=== PATIENT | female | born 1960 | race Caucasian/White ===

== ENCOUNTER → 2021-02-06 11:53 | Outpatient (CLI) | payer OTHER, SELFPAY | PROVIDERS: PCP Internal Medicine; Visit Provider Nurse Practitioner Family | DX: Z20.822 Contact with and (suspected) exposure to COVID-19 (principal) | CPT/HCPCS: U0003 ==

== ENCOUNTER 2023-04-26 14:58 | Emergency (ER) | payer OTHER, SELFPAY ==
[2023-04-26 15:10] VITALS: BP 129/87; PULSE 89; RESP 21; TEMP 36.8; O2SAT 100; BMI 25.2
--- NOTE | 2023-04-26 15:39 | EXP.UTC ---
Discharge Plan Disposition Patient Disposition: Home, Self-Care Condition: Good Prescriptions Prescriptions: New triamcinolone acetonide 0.1 % ointment 1 applic topical BID Qty: 454 0RF No Action fluticasone propionate 0.05 % cream 1 applic TOPICAL NEEDED PRN (Reason: cream) Referrals Follow up/Referrals: Provider,Referral, MD [Primary Care Provider] - See instructions Activity Restrictions/Add. Instructions Additional Instructions/Restrictions: follow up with pcp call for test results Clinical Impressions Clinical Impression: Acute eczema Instructions Patient Instructions: DI for Atopic Dermatitis-Adult, Eczema Discharge ED Provider: Casie ([facility])[place] [facility] [place] General Stated complaint: Rash on body, leg/ankle inflammation Mode of Arrival: Ambulatory Source of Information: Patient Limitations: No Limitations Time Seen by Provider: 04/26/23 15:39 Description of Symptoms (Recalled from Triage Doc. by RN): extreme eczema, hands are cracked, knees and ankles are swelling, itching unbearable (everywhere) HEENT Symptoms (Recalled from RN notes): No Resp Symptoms (Recalled from RN notes): No Skin Symptoms (Recalled from RN notes): Yes MS Symptoms (Recalled from RN notes): No Functional Status (Recalled from RN notes): n/a History of Present Illness Provider Complaint: 62 yr old female presents for rash to hands,arms,legs,feet,eyelid,chest and back, that itches. pt states she has had this rash has been coming and going for over 2 yrs and steroid cream helps but she runs out quick. Related Data Home Medications Medication Instructions Recorded Confirmed fluticasone propionate 0.05 % 1 applic topical NEEDED PRN 04/26/23 04/26/23 topical cream cream Previous Rx's Medication Instructions Recorded triamcinolone acetonide 0.1 % 1 applic topical BID #454 grams 04/26/23 topical ointment Allergies Allergy/AdvReac Type Severity Reaction Status Date / Time acetaminophen [From Percocet] Allergy Severe Rash Verified 04/26/23 15:20 oxycodone [From Percocet] Allergy Severe Rash Verified 04/26/23 15:20 Worker's Comp Is this a Worker's Comp case?: No [facility] Disclaimer: The information contained in this section may have been updated after the patient was seen, as this information can be updated by other users. Social History , [employer]) Smoking Status: Current every day smoker alcohol intake: never current occupational status: unemployed Travel in the last 8 weeks: None ROS Obtained: Yes All systems reviewed & no additional complaints except as documented Constitutional Constitutional: Reports system reviewed and no additional complaints, except as documented Eyes Eyes: Reports system reviewed and no additional complaints, except as documented ENT Ears, Nose, Mouth, and Throat: Reports system reviewed and no additional complaints, except as documented Cardiovascular Cardiovascular: Reports system reviewed and no additional complaints, except as documented Respiratory Respiratory: Reports system reviewed and no additional complaints, except as documented Musculoskeletal Musculoskeletal: Reports system reviewed and no additional complaints, except as documented Integumentary/Breasts Skin/Breast: Reports system reviewed and no additional complaints, except as documented, Reports as per HPI, Reports dry skin, Reports pruritus and Reports rash Neurologic Neurologic: Reports system reviewed and no additional complaints, except as documented Endocrine Endocrine: Reports system reviewed and no additional complaints, except as documented Allergic/Immunologic Allergic/Immunologic: Reports system reviewed and no additional complaints, except as documented Physical Exam General General appearance: alert and in no apparent distress Head Head exam: atraumatic Eye Eye exam: Present normal appearance and PERRL ENT ENT exam: Present
[2023-04-26 16:30] VITALS: BP 129/87; PULSE 89; RESP 21; TEMP 36.8; O2SAT 100
[2023-05-02 01:27] LABS: F001-IgE Egg White 0.98 kU/L (Class II); F002-IgE Milk 0.37 kU/L (Class I); F003-IgE Codfish 0.15 kU/L (Class 0/I); F004-IgE Wheat 0.35 kU/L (Class I); F010-IgE Sesame Seed 0.26 kU/L (Class 0/I); F013-IgE Peanut 0.24 kU/L (Class 0/I); F014-IgE Soybean 0.31 kU/L (Class 0/I); F024-IgE Shrimp 0.25 kU/L (Class 0/I); F027-IgE Beef 0.32 kU/L (Class I); F256-IgE Walnut 0.19 kU/L (Class 0/I); F338-IgE Scallop 0.28 kU/L (Class 0/I); Immunoglobulin E, Total 15364 IU/mL (6-495); O215-IgE Alpha-Gal 0.31 kU/L (Class 0/I)
== END 2023-04-26 16:30 | disposition home or self-care (01) ==
PROVIDERS: Emergency Provider Nurse Practitioner Family
DX: L30.9 Dermatitis, unspecified (principal); F17.210 Nicotine dependence, cigarettes, uncomplicated
CPT/HCPCS: 86003; 86008; 99204; 99212; G0463

== ENCOUNTER → 2023-09-16 14:22 | Outpatient (CLI) | payer OTHER, SELFPAY ==
[2023-09-16 15:38] LABS: Basophils # 0.1 K/mm3 (0-0.2); Basophils % 0.7 % (0.1-2.0); Eosinophils # 0.9 K/mm3 (0.0-0.4); Eosinophils % 10.6 % (0.1-12.0); Hematocrit 43.4 % (37.0-47.0); Hemoglobin 14.4 g/dL (12.2-16.2); Lymphocytes # 1.5 K/mm3 (0.7-4.5); Lymphocytes % 18.2 % (10-50); Mean Corpuscular HGB Conc 33.2 g/dL (31.8-35.4); Mean Corpuscular Hemoglobin 32.7 pg (27.0-31.2); Mean Corpuscular Volume 98.5 fl (81-99); Mean Platelet Volume 7.3 fl (7.4-10.4); Monocytes # 0.5 K/mm3 (0.1-1.0); Monocytes % 5.4 % (1.7-9.3); Neutrophils # 5.5 K/mm3 (1.8-7.8); Neutrophils % 65.2 % (37.0-80.0); Platelet Count 403 K/mm3 (142-424); Red Blood Count 4.41 M/mm3 (4.20-5.40); Red Cell Distribution Width 13.5 % (11.5-17.5); White Blood Count 8.4 K/mm3 (4.8-10.8)
[2023-09-16 16:02] LABS: Chloride 101 mmol/L (98-107); Potassium 3.9 mmoL/L (3.5-5.1); Sodium 138 mmol/L (136-145)
[2023-09-16 16:04] LABS: Alanine Aminotransferase 23 U/L (12-78); Aspartate Amino Transferase 31 U/L (14-36); Blood Urea Nitrogen 12 mg/dl (7-17); Estimated Glomerular Filt Rate 72 ml/min (>60); GFR (African American) 88 ML/MIN (>60)
[2023-09-16 16:05] LABS: Albumin Level 4.1 g/dl (3.5-5.0); Albumin/Globulin Ratio 1.3 (1.1-1.8); Alkaline Phosphatase 160 U/L (38-126); Anion Gap 8.9 mEq/L (5-15); Bilirubin,Total 0.3 mg/dl (0.2-1.3); Calcium 9.1 mg/dl (8.4-10.2); Carbon Dioxide 32 mmol/L (22.0-30.0); Globulin 3.2 g/dL (1.3-3.2); Glucose 101 mg/dl (74-100); Total Protein,Serum 7.3 g/dl (6.3-8.2)
[2023-09-18 14:33] LABS: Peripheral Smear Review Scanned Result
== END ==
PROVIDERS: Visit Provider Internal Medicine Medical Oncology
DX: D72.10 Eosinophilia, unspecified (principal)
CPT/HCPCS: 36415; 80053; 85025

== ENCOUNTER 2024-05-25 18:29 | Observation (INO) | payer BC, SELFPAY ==
[2024-05-25] VITALS (10 sets, daily range): BP systolic 128–161; BP diastolic 75–100; PULSE 106–124; RESP 18–24; TEMP 36.9; O2SAT 91–98; BMI 25.9; BMI 25.7
--- NOTE | 2024-05-25 19:14 | CT_ITS ---
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 Exam focused on the arteries. 3D rendering (Not supervised by radiologist): MIP and/or 3D reconstructed images were created by the technologist. Radiation optimization: All CT scans at this facility use at least one of these dose optimization techniques: automated exposure control; mA and/or kV adjustment per patient size (includes targeted exams where dose is matched to clinical indication); or iterative reconstruction. Contrast material: ISOVUE 370; Contrast volume: 70 ml; Contrast route: INTRAVENOUS (IV); COMPARISON: No relevant prior studies available. FINDINGS: Pulmonary arteries: Filling defects involving the right lateral basilar segmental pulmonary artery, and left posterior basilar segmental pulmonary artery compatible with pulmonary emboli. Aorta: Unremarkable. No aortic aneurysm. No aortic dissection. Lungs: Prominent interstitial markings of the lung bases with centrilobular airspace opacities suggest mild pulmonary edema versus mild interstitial lung disease. Pleural spaces: Unremarkable. No pneumothorax. No pleural effusion. Heart: Unremarkable. No cardiomegaly. No pericardial effusion. Coronary arteries: Mild three-vessel calcific atherosclerotic disease of the coronary arteries is present. Lymph nodes: Calcified nodes in the left upper hilum likely related to prior granulomatous process. Bones/joints: Unremarkable. No acute fracture. Soft tissues: Unremarkable. IMPRESSION: 1. Prominent interstitial markings of the lung bases with centrilobular airspace opacities suggest mild pulmonary edema versus mild interstitial lung disease. 2. Filling defects involving the right lateral basilar segmental pulmonary artery, and left posterior basilar segmental pulmonary artery compatible with pulmonary emboli. RV/LV = 0.93. No evidence of right heart strain.
--- NOTE | 2024-05-25 19:15 | ED_ITS ---
Discharge Plan Disposition Patient Disposition: Admitted Clinical Impressions Clinical Impression: Eosinophilia, Erythroderma, Pulmonary embolism, Tachycardia Discharge ED Provider: Vitaliy Marquez Adult HPI General Chief complaint: Skin/Abscess/Foreign Body Stated complaint: rash, Time Seen by Provider: 05/25/24 18:32 Mode of Arrival: Ambulatory Source of Information: Patient Limitations: No Limitations Description of Symptoms (Recalled from ER Triage Doc. by RN): pt has had a red burning rasha ll over body for the last 3-4 weeks after taking a new antibiotic prescribed for bronchitis, ER MD at bedside upon triage History of Present Illness HPI narrative: 63-year-old female presents to the ER for concerns of diffuse rash. Patient states 4 weeks ago she was diagnosed with bronchitis and started on an antibiotic that starts with an L, believed to be levofloxacin. She took this as prescribed, 2 days after finishing it, she had a small red patch on her left forearm. Within 24 hours she had diffuse redness all over her entire body like sunburn. She states the top layer of her skin got very dry and flakes off like a sunburn. Since that time, her symptoms have been persistent. She took a 5- day steroid pack that she finished 5 days ago. She states this slightly improved her symptoms, relieving some of the itching and burning and improving the redness, however it did not go away. Patient states her whole body feels like a bad sunburn itching and burning. She states her skin is dry and flaky especially in areas of friction. Patient does additionally report that she had a weird rash approximately 8 months ago when she had a clot on her aorta . She states she took a blood thinner and the clot was reportedly completely dissolved so she was taken off the blood thinner. She states the rash at that time appeared more like hives and was not as burning and itching as this rash, however her skin was dry. Patient denies any painful eyes, mouth, or throat. She states the rash has not been on the palms or soles. Patient does report slight swelling in her lower extremities without shortness of breath or chest pain. She states she chronically feels cold because her skin is so hot to the touch, but she has not had fever or other associated symptoms. Related Data Home Medications Medication Instructions Recorded Confirmed fluticasone propionate 0.05 % 1 applic topical NEEDED PRN 04/26/23 09/16/23 topical cream cream amlodipine 5 mg tablet mg PO 09/16/23 09/16/23 apixaban 5 mg tablet (Eliquis) mg PO DAILY 09/16/23 09/16/23 aspirin 81 mg chewable tablet PO 09/16/23 09/16/23 budesonide-formoterol HFA 160 inhalation 09/16/23 09/16/23 mcg-4.5 mcg/actuation aerosol inhaler (Symbicort) famotidine 20 mg tablet mg PO BID 09/16/23 09/16/23 hydrochlorothiazide 12.5 mg capsule mg PO 09/16/23 09/16/23 hydroxyzine HCl 25 mg tablet mg PO 09/16/23 09/16/23 ipratropium 0.5 mg-albuterol 3 mg ml inhalation 09/16/23 09/16/23 (2.5 mg base)/3 mL nebulization soln levocetirizine 5 mg tablet mg PO DAILY 09/16/23 09/16/23 montelukast 10 mg tablet mg PO DAILY 09/16/23 09/16/23 Previous Rx's Medication Instructions Recorded hydroxyzine pamoate 25 mg capsule 25 mg PO HS 7 days #7 caps 04/26/23 (Vistaril) triamcinolone acetonide 0.1 % 1 applic topical BID #454 grams 04/26/23 topical ointment Allergies Allergy/AdvReac Type Severity Reaction Status Date / Time acetaminophen [From Percocet] Allergy Severe Rash Verified 09/16/23 13:37 oxycodone [From Percocet] Allergy Severe Rash Verified 09/16/23 13:37 [facility] Disclaimer: The information contained in this section may have been updated after the patient was seen, as this information can be updated by other users. Medical History (Updated 05/25/24 @ 22:14 by Vitaliy Marquez MD) Asthma Surgical History (Updated 09/16/23 @ 13:48 by Tara Gray MA) H/O: hysterectomy Family History (Updated 09/16/23 @ 13:49 by Tara Gray MA) Other Asthma Eczema Hyperlipidemia Hypertension Social History Smoking Status: Current every day smoker alcohol intake: never current occupational status: unemployed Travel in the last 8 weeks: None ROS Obtained: Yes All systems reviewed & no additional complaints except as documented Constitutional Constitutional: Reports chills, Denies fever(s), Denies headache(s) and Denies weakness Eyes Eyes: Denies change in vision, Denies dry eyes and Denies eye pain ENT Ears, Nose, Mouth, and Throat: Denies dizziness, Denies headache(s), Denies nasal congestion, Denies odynophagia and Denies sore throat Cardiovascular Cardiovascular: Denies chest pain, Denies dyspnea and Denies leg edema Respiratory Respiratory: Denies cough and Denies dyspnea Gastrointestinal Gastrointestingal: Denies constipation, diarrhea, nausea, odynophagia or vomiting Genitourinary Female Genitourinary: Denies dysuria Musculoskeletal Musculoskeletal: Denies arthralgias, Denies myalgias, Denies numbness and Denies tingling Integumentary/Breasts Skin/Breast: Reports change in pigmentation, Reports dry skin, Reports redness, Reports pruritus and Reports rash Neurologic Neurologic: Denies dizziness, Denies headache(s), Denies numbness, Denies tingling and Denies weakness Physical Exam General General appearance: alert and in no apparent distress Head Head exam: atraumatic and normocephalic Eye Eye exam: Present normal appearance, PERRL and EOMI; Absent conjunctival redness ENT ENT exam: Present normal oropharynx, mucous membranes moist and other (No erythema of the oropharynx, no skin sloughing or blistering of the mucosal membranes) Neck Neck exam: Present normal inspection and full ROM Chest Chest inspection: Present symmetric chest wall rise; Absent tenderness Respiratory Respiratory exam: Present normal lung sounds bilaterally; Absent respiratory distress, wheezes or stridor Cardiovascular Cardiovascular exam: Present normal rhythm and tachycardia Abdominal Exam Abdominal exam: Present soft; Absent distention, tenderness, guarding or rebound Extremities Exam Extremities exam: Present full ROM and edema (0 to +1 bilateral distal pitting edema) Neurological Exam Neurological exam: Present alert and oriented X3; Absent motor sensory deficit Psychiatric Psychiatric exam: Present normal affect and normal mood Skin Skin exam: Present warm, dry, rash (Diffuse, erythematous, confluent rash without vesicles, no sloughing or blisters, skin is extremely dry, flaky, but not peeling, spares palms and soles, spares mucous membranes and eyes) and erythema Medical Decision Making Medical Records Medical records reviewed: Yes I reviewed the patient's medical records. MR Comment: Reviewed urgent care note from 04/26 which demonstrates patient was evaluated for diffuse rash that she reported at that time had been coming and going for 2 years where steroid cream had previously helped. Patient was prescribed triamcinolone. Prabhakar Inquiry Pt receiving controlled substance: No Vital Signs: 05/25/24 18:30 05/25/24 19:00 05/25/24 20:05 Temperature 98.4 F Temperature Source Oral Pulse Rate 124 H 114 H Pulse Rate [Right Radial] 114 H Respiratory Rate 24 Blood Pressure 146/100 H 153/92 H Blood Pressure [Right Arm] 147/100 H Blood Pressure Mean [Right Arm] 115 02 Sat by Pulse Oximetry 97 98 98 Oxygen Delivery Method Room Air 05/25/24 20:30 05/25/24 21:00 Temperature Temperature Source Pulse Rate 119 H 119 H Pulse Rate [Right Radial] Respiratory Rate Blood Pressure 141/84 H 161/96 H Blood Pressure [Right Arm] Blood Pressure Mean [Right Arm] 02 Sat by Pulse Oximetry 97 96 Oxygen Delivery Method Lab Data Lab Results 05/25/24 19:15: WBC 13.8 H, RBC 4.37, Hgb 14.3, Hct 43.5, MCV 99.7 H, MCH 32.9 H , MCHC 33.0, RDW 14.6, Plt Count 534 H, MPV 7.1 L, Neut % (Auto) 68.2, Lymph % (Auto) 13.1, Mcdowell % (Auto) 5.5, Eos % (Auto) 12.6 H, Baso % (Auto) 0.6, Neut # (Auto) 9.4 H, Lymph # (Auto) 1.8, Mcdowell # (Auto) 0.8, Eos # (Auto) 1.7 H, Baso # (Auto) 0.1, Sodium 138, Potassium 3.3 L, Chloride 104, Carbon Dioxide 29, Anion Gap 8.3, BUN 16, Creatinine 1.00, Estimated Creat Clear 61, Estimated GFR 56 L, Est GFR ( Amer) 68, Glucose 116 H, Calcium 8.9, Total Bilirubin 0.9, AST 30, ALT 35, Alkaline Phosphatase 105, Troponin I < 0.01, NT-Pro-B Natriuret Pep 76.1, Total Protein 7.2, Albumin 3.8, Globulin 3.4 H, Albumin/Globulin Ratio 1.1 05/25/24 19:15 05/25/24 19:15 Orders (Tests/Meds): ED MEDICATIONS Generic Name Dose Route Start Last Admin Trade Name Rob PRN Reason Stop Dose Admin Sodium Chloride 10 ml 05/25/24 19:56 05/25/24 19:57 Sodium Chloride 0.9% 10ml Syr (Rad Only) IV 06/24/24 19:55 10 ml NEEDED PRN Administration Maintain IV Site Discontinued Medications Generic Name Dose Route Start Last Admin Trade Name Rob PRN Reason Stop Dose Admin Apixaban 10 mg 05/25/24 20:59 05/25/24 21:38 Apixaban 5mg Tablet PO 05/25/24 21:00 10 mg ONCE ONE Administration Diphenhydramine HCl 25 mg 05/25/24 19:21 05/25/24 19:28 Diphenhydramine 25mg Capsule PO 05/25/24 19:22 25 mg ONCE ONE Administration Diphenhydramine HCl 25 mg 05/25/24 21:04 05/25/24 21:13 Diphenhydramine 50mg/Ml Vial IV 05/25/24 21:05 25 mg ONCE ONE Administration Lactated Ringer's 1,000 mls @ 999 mls/hr 05/25/24 19:05 05/25/24 19:17 Lactated Ringer's 1000 Ml Bag IV 05/25/24 20:05 999 mls/hr .Q1H1M ONE Administration Iopamidol 70 ml 05/25/24 19:55 05/25/24 19:56 Iopamidol-370 (76%);100ml Bottle IV 05/25/24 19:56 70 ml ONCE ONE Administration Methylprednisolone Sodium Succinate 80 mg 05/25/24 20:59 05/25/24 21:09 Methylprednisolone Sod Succ 125mg Vial IV 05/25/24 21:00 Not Given ONCE ONE Methylprednisolone Sodium Succinate 80 mg 05/25/24 21:09 05/25/24 21:10 Methylprednisolone Sod Succ 40mg Vial IV 05/25/24 21:10 80 mg ONCE ONE Administration Sodium Chloride 40 ml 05/25/24 19:55 05/25/24 19:56 0.9 % Sodium Chloride 50 Ml Vial IV 05/25/24 19:56 40 ml ONCE ONE Administration ORDERS Category Date Time Status CT angio chest - dissection Stat Cat Scan 05/25/24 19:14 Completed BNP [NT Pro Brain Natriuretic Pep.] Stat Lab 05/25/24 19:15 Completed CBC w/Auto Diff [Complete Blood Count Auto Diff] Stat Lab 05/25/24 19:15 Completed CMP [Comprehensive Metabolic Panel] Stat Lab 05/25/24 19:15 Completed Trop I [Troponin I] Stat Lab 05/25/24 19:15 Completed Troponin I Q3H Lab 05/25/24 23:50 Ordered Troponin I Q3H Lab 05/26/24 02:50 Ordered Medical Decision Narrative: In summary, this 63-year-old female presents to the emergency department today with diffuse erythematous, itchy, burning rash with dry, flaky skin. On initial evaluation patient is hemodynamically stable though mildly tachycardic, she is shivering with chills but is afebrile, has diffuse rash as described in physical exam. Differential diagnosis includes but is not limited to drug reaction, erythroderma, I considered staph scalded skin, SJS, TEN, patient has no sloughing, blistering, or peeling, her skin is dry and flaky, sparing of the mucous membranes as well as palms and soles. I considered atopic or contact dermatitis however patient has no recent changes in detergents, soaps, or other agents that touch her skin. She denies any new supplements or medications. Due to mild swelling in the bilateral lower extremities, I did consider possibility of third spacing fluid from various etiologies so BNP was ordered. With her history of prior aortic clot associated with other rash, also considered possibility of existing clot. Based on these concerns, I ordered serum labs, IV fluids, antihistamine, CT imaging. Patient received IV fluids, Benadryl for treatment initially. Labs personally reviewed demonstrate mild leukocytosis with eosinophilia predominance, patient has had eosinophilia before, however is nearly double what it was back in September 2023 based on my review of previous records. CMP not specifically actionable at this time, initial troponin undetectably low reassuring against heart strain. CTA PE personally interpreted demonstrates abnormalities concerning for PE in the bilateral lungs, radiology specifically called me about this and stated there are filling defects concerning for segmental PE bilaterally, no heart strain. Patient stated on reassessment that she had improvement of her symptoms of itching and burning initially after the Benadryl, but it is returning. Additional Benadryl was administered as well as Solu-Medrol. I believe the most likely diagnosis at this time is erythroderma secondary to levofloxacin. Reviewed previous records demonstrates she has actually had this rash for more than a month which is reassuring against DRESS syndrome, however patient continues to be tachycardic which could be an indicator of systemic symptoms, this could also be related to patient having PE though she does not show signs of heart strain on imaging or labs. It is also possible that patient has tachycardia secondary to anxiety which she endorses as well as shivering secondary to her diffuse erythematous rash Which she states is making her feel cold. Given these findings, I believe it is most appropriate for patient to be admitted to the hospital for monitoring, cardiology evaluation, and continued steroid treatment. I discussed this case with the hospitalist including my goal for patient to start on oral prednisone and have at least 3-week steroid taper at the time of discharge as well as goals to have the patient see cardiology to rule out possible endorgan involvement with her diffuse drug reaction. Patient was accepted to hospitalist for admission. Critical Care Critical Care Time Critical Care Time: No
[2024-05-25] MEDS: LACTATED RINGERS 1000ML 1,000 ML 999 ML IV (19:17)
[2024-05-25 19:24] LABS: Basophils # 0.1 K/mm3 (0-0.2); Basophils % 0.6 % (0.1-2.0); Eosinophils # 1.7 K/mm3 (0.0-0.4); Eosinophils % 12.6 % (0.1-12.0); Hematocrit 43.5 % (37.0-47.0); Hemoglobin 14.3 g/dL (12.2-16.2); Lymphocytes # 1.8 K/mm3 (0.7-4.5); Lymphocytes % 13.1 % (10-50); Mean Corpuscular Hemoglobin 32.9 pg (27.0-31.2); Mean Corpuscular Volume 99.7 fl (81-99); Mean Platelet Volume 7.1 fl (7.4-10.4); Monocytes # 0.8 K/mm3 (0.1-1.0); Monocytes % 5.5 % (1.7-9.3); Neutrophils # 9.4 K/mm3 (1.8-7.8); Neutrophils % 68.2 % (37.0-80.0); Platelet Count 534 K/mm3 (142-424); Red Blood Count 4.37 M/mm3 (4.20-5.40); Red Cell Distribution Width 14.6 % (11.5-17.5); White Blood Count 13.8 K/mm3 (4.8-10.8)
[2024-05-25] MEDS: diphenhydrAMINE 25MG CAPSULE 25 MG PO (19:28)
[2024-05-25 19:32] LABS: Chloride 104 mmol/L (98-107); Potassium 3.3 mmoL/L (3.5-5.1); Sodium 138 mmol/L (136-145)
[2024-05-25 19:34] LABS: Blood Urea Nitrogen 16 mg/dl (7-17); Creatinine Clearance Estimated 61 mL/min (50-200); Estimated Glomerular Filt Rate 56 ml/min (>60); GFR (African American) 68 ML/MIN (>60)
[2024-05-25 19:35] LABS: Alanine Aminotransferase 35 U/L (12-78); Albumin Level 3.8 g/dl (3.5-5.0); Albumin/Globulin Ratio 1.1 (1.1-1.8); Alkaline Phosphatase 105 U/L (38-126); Anion Gap 8.3 mEq/L (5-15); Aspartate Amino Transferase 30 U/L (14-36); Bilirubin,Total 0.9 mg/dl (0.2-1.3); Calcium 8.9 mg/dl (8.4-10.2); Carbon Dioxide 29 mmol/L (22.0-30.0); Globulin 3.4 g/dL (1.3-3.2); Glucose 116 mg/dl (74-100); Total Protein,Serum 7.2 g/dl (6.3-8.2)
--- NOTE | 2024-05-25 19:41 | PC.NURSE ---
pt to CT
[2024-05-25 19:44] LABS: NT Pro Brain Natriuretic Pep. 76.1 pg/mL (0-125)
[2024-05-25] MEDS: 0.9 % SODIUM CHLORIDE 50 ML VIAL 40 ML IV (19:56)
[2024-05-25] MEDS: IOPAMIDOL-370 (76%);100ML BOTTLE 70 ML IV (19:56)
[2024-05-25] MEDS: SODIUM CHLORIDE 0.9% 10ML SYR (RAD ONLY) 10 ML IV (19:57)
--- NOTE | 2024-05-25 20:51 | PC.NURSE ---
Spoke with Layla in lab to add on trop
[2024-05-25] MEDS: METHYLPREDNISOLONE SOD SUCC 40MG VIAL 80 MG IV (21:10)
[2024-05-25] MEDS: diphenhydrAMINE 50MG/ML VIAL 25 MG IV (21:13)
[2024-05-25 21:15] LABS: Troponin I < 0.01 ng/ml (0.00-0.034)
[2024-05-25] MEDS: APIXABAN 5MG TABLET 10 MG PO (21:38)
--- NOTE | 2024-05-25 22:14 | PC.NURSE ---
Spoke with transfer and pumphouse operator chief about admission.
--- NOTE | 2024-05-25 22:22 | PC.NURSE ---
Called report to Erich ARBOLEDA on 2nd floor
--- NOTE | 2024-05-25 22:22 | PC.NURSE ---
[id number] RECEIVED PHONE REPORT FROM SARA RN/ED NURSE. PATIENT IS A 63 YO FEMALE. DIAGNOSIS ERYTHRODERMA/PE/TACHYCARDIA.MAY TRANSPORT BY W/C.
--- NOTE | 2024-05-25 22:30 | P.HP_ITS ---
History of Present Illness *Admission Date: 05/25/24 *Reason for visit:: generalized rash *History of present illness: 63-year-old female presents to the ER for concerns of diffuse rash. Patient states 4 weeks ago she was diagnosed with bronchitis and started on an antibiotic that starts with an L, believed to be levofloxacin. She took this as prescribed, 2 days after finishing it, she had a small red patch on her left forearm. Within 24 hours she had diffuse redness all over her entire body like sunburn. She states the top layer of her skin got very dry and flakes off like a sunburn. Since that time, her symptoms have been persistent. She took a 5- day steroid pack that she finished 5 days ago. She states this slightly improved her symptoms, relieving some of the itching and burning and improving the redness, however it did not go away. Patient states her whole body feels like a bad sunburn itching and burning. She states her skin is dry and flaky especially in areas of friction. Patient does additionally report that she had a weird rash approximately 8 months ago when she had a clot on her aorta . She states she took a blood thinner and the clot was reportedly completely dissolved so she was taken off the blood thinner. She states the rash at that time chey eared more like hives and was not as burning and itching as this rash, however her skin was dry. Patient denies any painful eyes, mouth, or throat. She states the rash has not been on the palms or soles. Patient does report slight swelling in her lower extremities without shortness of breath or chest pain. She states she chronically feels cold because her skin is so hot to the touch, but she has not had fever or other associated symptoms. [facility] Disclaimer: The information contained in this section may have been updated after the patient was seen, as this information can be updated by other users. Medical History (Updated 05/26/24 @ 19:37 by James Agudelo APRN) Asthma Surgical History H/O: hysterectomy Family History Other Asthma Eczema Hyperlipidemia Hypertension Social History (Updated 05/25/24 @ 22:57 by Beverley Vu RN) Smoking Status: Current every day smoker alcohol intake: never current occupational status: unemployed Travel in the last 8 weeks: None Review of Systems Constitutional Constitutional: Denies headache(s) and Denies weakness ENT Ears, Nose, Mouth, and Throat: Denies dizziness and Denies headache(s) *Musculoskeletal Musculoskeletal: Denies numbness and Denies tingling *Neurologic Neurologic: Denies dizziness, Denies headache(s), Denies numbness, Denies tingling and Denies weakness Meds Home Medications and Allergies Home Medications ?Medication ?Instructions ?Recorded ?Confirmed ?Type amlodipine 5 mg tablet 5 mg PO DAILY 09/16/23 05/25/24 History famotidine 20 mg tablet 20 mg PO BID 09/16/23 05/25/24 History hydrochlorothiazide 12.5 mg capsule 12.5 mg PO DAILY 09/16/23 05/25/24 History montelukast 10 mg tablet 10 mg PO HS 09/16/23 05/26/24 History apixaban 5 mg tablet (Eliquis) See Rx Instructions .Route 05/26/24 Rx .COMPLEX 30 days #72 tabs budesonide-formoterol HFA 160 2 puff inhalation BID 05/26/24 05/26/24 History mcg-4.5 mcg/actuation aerosol inhaler (Breyna) hydroxyzine HCl 25 mg tablet 25 mg PO HS 05/26/24 05/26/24 History loratadine 10 mg tablet 10 mg PO DAILY 05/26/24 05/26/24 History prednisone 10 mg tablet See Rx Instructions .Route 05/26/24 Rx .COMPLEX 21 days #65 tabs New Prescriptions to Start Prescriptions: apixaban [Eliquis] Luis Horn prednisone Luis Horn Allergies Allergy/AdvReac Type Severity Reaction Status Date / Time acetaminophen [From Percocet] Allergy Severe Rash Verified 09/16/23 13:37 oxycodone [From Percocet] Allergy Severe Rash Verified 09/16/23 13:37 Exam Data for Last 24 hours Vital signs and Labs for Last 24 Hours: Temp Pulse Resp BP Pulse Ox O2 Del Method 98.5 F 109 H 18 143/85 H 97 Room Air 05/25/24 22:23 05/25/24 22:23 05/25/24 22:23 05/25/24 22:23 05/25/24 22:00 05/25/24 22:23 Laboratory Results - last 24 hr 05/25/24 19:15: WBC 13.8 H, RBC 4.37, Hgb 14.3, Hct 43.5, MCV 99.7 H, MCH 32.9 H , MCHC 33.0, RDW 14.6, Plt Count 534 H, MPV 7.1 L, Neut % (Auto) 68.2, Lymph % (Auto) 13.1, [place] % (Auto) 5.5, Eos % (Auto) 12.6 H, Baso % (Auto) 0.6, Neut # (Auto) 9.4 H, Lymph # (Auto) 1.8, [place] # (Auto) 0.8, Eos # (Auto) 1.7 H, Baso # (Auto) 0.1, Sodium 138, Potassium 3.3 L, Chloride 104, Carbon Dioxide 29, Anion Gap 8.3, BUN 16, Creatinine 1.00, Estimated Creat Clear 61, Estimated GFR 56 L, Est GFR ( Amer) 68, Glucose 116 H, Calcium 8.9, Total Bilirubin 0.9, AST 30, ALT 35, Alkaline Phosphatase 105, Troponin I < 0.01, NT-Pro-B Natriuret Pep 76.1, Total Protein 7.2, Albumin 3.8, Globulin 3.4 H, Albumin/Globulin Ratio 1.1 I & O for Last 24 hours: Intake & Output 05/22/24 05/23/24 05/24/24 05/25/24 23:59 23:59 23:59 23:59 Weight 68.492 kg Constitutional Constitutional: moderate distress and cooperative *Routine HEENT Exam Head: Present normocephalic and atraumatic Eye: Present EOMI and PERRL ENT: Present mucous membranes moist *Routine Neck Exam Neck: Present supple; Absent lymphadenopathy *Routine Respiratory Exam Respiratory: Present CTA bilaterally *Routine Cardiovascular Exam Cardiovascular: Present RRR *Routine Abdominal Exam Abdominal: Present soft and normoactive bowel sounds; Absent tenderness *Routine Rectal Exam Rectal:: deferred *Routine Genitalia Exam Genitalia:: deferred *Routine Extremities Exam Extremities: Absent cyanosis, clubbing or edema *Routine Skin Exam Skin: Present erythema, dry, warm and rash *Routine Neurological Exam Neurological: Present alert, oriented X3, normal reflexes and moving all extremities Routine Psychiatric Exam Psychiatric: Present anxious Assessment and Plan *Assessment and plan (1) Pulmonary embolism: Status: Acute Qualifiers: Pulmonary embolism type: single subsegmental (without acute cor pulmonale) Qualified Code(s): I26.93 - Single subsegmental pulmonary embolism without acute cor pulmonale Category: Medical Code(s): I26.99 - Other pulmonary embolism without acute cor pulmonale (2) Tachycardia: Status: Acute Category: Medical Code(s): R00.0 - Tachycardia, unspecified (3) Eosinophilia: Status: Acute Qualifiers: Eosinophilia type: unspecified eosinophilia Qualified Code(s): D72.10 - Eosinophilia, unspecified Category: Medical Code(s): D72.10 - Eosinophilia, unspecified (4) Xerosis due to atopic dermatitis: Status: Acute Category: Medical Code(s): L20.9 - Atopic dermatitis, unspecified (5) HTN (hypertension): Status: Acute Qualifiers: Hypertension type: unspecified Qualified Code(s): I10 - Essential (primary) hypertension Category: Medical Code(s): I10 - Essential (primary) hypertension (6) Asthma: Status: Acute Qualifiers: Asthma severity: unspecified severity Asthma persistence: unspecified Asthma complication type: unspecified Qualified Code(s): J45.909 - Unspecified asthma, uncomplicated Category: Medical Code(s): J45.909 - Unspecified asthma, uncomplicated (7) Current smoker: Status: Acute Category: Social Hx Code(s): F17.200 - Nicotine dependence, unspecified, uncomplicated Plan 63-year-old female presents to the ER for concerns of diffuse rash. She states her skin is dry and flaky especially in areas of friction. Patient does additionally report that she had a weird rash approximately 8 months ago when she had a clot on her aorta . She states she took a blood thinner and the clot was reportedly completely dissolved so she was taken off the blood thinner. reason that deemed to perform CTA of chest whrn the left segmental pulmonary embolism was a main concern. Patient remains tachycardic on ER with severe eosinophylia. ED requested admission for further monitoring and management. Agreed for it. Plan: -Stable left acute pulmonary embolism: tachycardia. no right heart strain Admit patient for med surg. monitoring. currently on RA. start continuos cardiac engine monitor for chest pain and decompensation symptoms start eliquis 10mg BID. repeat labs in the morning -eosinophilia and xerosis due to AD: loaded with 160mg solumedrol at ED continue IV steroid. goal transition to PO. patient may follow up as outpatient with engineering aide for definitive diagnosis and treatment. hold aspirin in the setting of hypersensitivity state. HTN and Asthma: conditions reviewed resume home regimen smoker: on nicotine patch. education on smoking cessation strategies was provided On protonix for GI ppx Full code regular cardiac diet
--- NOTE | 2024-05-25 22:43 | PC.NURSE ---
Patient arrived to floor via wheelchair from ED at 22:42.
--- NOTE | 2024-05-25 22:43 | PC.NURSE ---
[id number] PATIENT ARRIVED TO THE FLOOR VIA W/C. ADMITTED TO ROOM 209.
[2024-05-25] MEDS: 0.9 % SODIUM CHLORIDE 1000ML 1,000 ML 50 ML IV (23:47)
[2024-05-26] VITALS: BP 122/72; PULSE 109; PULSE 111; RESP 18; TEMP 36.9; O2SAT 99
[2024-05-26 00:23] LABS: Troponin I < 0.01 ng/ml (0.00-0.034)
[2024-05-26] MEDS: POTASSIUM CHLORIDE 20MEQ TAB 40 MEQ PO (00:34)
[2024-05-26 03:34] LABS: Troponin I < 0.01 ng/ml (0.00-0.034)
[2024-05-26 04:00] VITALS: BP 110/54; PULSE 100; PULSE 102; RESP 16; TEMP 36.6; O2SAT 97
[2024-05-26 08:00] VITALS: BP 105/60; PULSE 92; PULSE 95; RESP 19; TEMP 36.8; O2SAT 97
[2024-05-26 08:12] LABS: Alanine Aminotransferase 30 U/L (12-78); Albumin Level 3.1 g/dl (3.5-5.0); Albumin/Globulin Ratio 1.1 (1.1-1.8); Alkaline Phosphatase 84 U/L (38-126); Anion Gap 6.4 mEq/L (5-15); Aspartate Amino Transferase 25 U/L (14-36); Bilirubin,Total 0.7 mg/dl (0.2-1.3); Blood Urea Nitrogen 16 mg/dl (7-17); Calcium 8.5 mg/dl (8.4-10.2); Carbon Dioxide 28 mmol/L (22.0-30.0); Chloride 108 mmol/L (98-107); Creatinine Clearance Estimated 61 mL/min (50-200); Estimated Glomerular Filt Rate 72 ml/min (>60); GFR (African American) 87 ML/MIN (>60); Globulin 2.8 g/dL (1.3-3.2); Glucose 180 mg/dl (74-100); Potassium 3.4 mmoL/L (3.5-5.1); Sodium 139 mmol/L (136-145); Total Protein,Serum 5.9 g/dl (6.3-8.2)
[2024-05-26 08:24] LABS: Basophils % 0.2 % (0.1-2.0); Eosinophils % 0.1 % (0.1-12.0); Hematocrit 39.2 % (37.0-47.0); Lymphocytes # 0.7 K/mm3 (0.7-4.5); Lymphocytes % 11.3 % (10-50); Mean Corpuscular HGB Conc 30.7 g/dL (31.8-35.4); Mean Corpuscular Volume 104.3 fl (81-99); Mean Platelet Volume 7.2 fl (7.4-10.4); Monocytes # 0.1 K/mm3 (0.1-1.0); Monocytes % 2.1 % (1.7-9.3); Neutrophils # 5.4 K/mm3 (1.8-7.8); Neutrophils % 86.2 % (37.0-80.0); Platelet Count 434 K/mm3 (142-424); Red Blood Count 3.76 M/mm3 (4.20-5.40); Red Cell Distribution Width 14.4 % (11.5-17.5); White Blood Count 6.3 K/mm3 (4.8-10.8)
--- NOTE | 2024-05-26 08:24 | HMH.PHAINT1 ---
Pharmacy Intervention Comments: HOME MEDICATION LIST VERIFIED USING LIST FROM OUTPATIENT PHARMACY
[2024-05-26 08:32] LABS: MANUAL DIFFERENTIAL MANUAL DIFFERENTIAL (MANUAL DIFF)
[2024-05-26] MEDS: PANTOPRAZOLE 40MG TABLET 40 MG PO (08:35)
[2024-05-26] MEDS: APIXABAN 5MG TABLET 10 MG PO (08:35)
[2024-05-26 09:28] LABS: MANUAL DIFFERENTIAL MANUAL DIFFERENTIAL (MANUAL DIFF)
[2024-05-26 09:31] LABS: Basophils % 0.2 % (0.1-2.0); Eosinophils % 0.1 % (0.1-12.0); Hematocrit 37.2 % (37.0-47.0); Hemoglobin 11.8 g/dL (12.2-16.2); Lymphocytes # 0.8 K/mm3 (0.7-4.5); Lymphocytes % 9.7 % (10-50); Mean Corpuscular HGB Conc 31.7 g/dL (31.8-35.4); Mean Corpuscular Hemoglobin 32.3 pg (27.0-31.2); Mean Corpuscular Volume 101.8 fl (81-99); Mean Platelet Volume 7.3 fl (7.4-10.4); Monocytes # 0.2 K/mm3 (0.1-1.0); Monocytes % 2.5 % (1.7-9.3); Neutrophils # 6.9 K/mm3 (1.8-7.8); Neutrophils % 87.4 % (37.0-80.0); Platelet Count 448 K/mm3 (142-424); Red Blood Count 3.65 M/mm3 (4.20-5.40); Red Cell Distribution Width 14.6 % (11.5-17.5); White Blood Count 7.9 K/mm3 (4.8-10.8)
[2024-05-26 10:00] LABS: Lymphocytes % 11 % (10-50); Macrocytosis 1+; Monocytes % 2 % (2-9); Neutrophils % 87 % (42-76); Total Cells Counted 100
[2024-05-26 10:01] LABS: Hypochromasia 1+; Platelet Estimate Slight Increase
[2024-05-26 10:03] LABS: Hemoglobin 12.1 g/dL (12.2-16.2)
[2024-05-26 10:23] LABS: Hypochromasia 1+; Lymphocytes % 12 % (10-50); Macrocytosis 1+; Monocytes % 1 % (2-9); Neutrophils % 87 % (42-76); Platelet Estimate Slight Increase; Total Cells Counted 100
[2024-05-26] MEDS: predniSONE 20MG TAB 60 MG PO (10:58)
--- NOTE | 2024-05-26 11:29 | EXP.DC.SUM ---
General Admission date:: 05/25/24 Discharge date: 05/26/24 HPI HPI HPI: 63-year-old female presents to the ER for concerns of diffuse rash. Patient states 4 weeks ago she was diagnosed with bronchitis and started on an antibiotic that starts with an L, believed to be levofloxacin. She took this as prescribed, 2 days after finishing it, she had a small red patch on her left forearm. Within 24 hours she had diffuse redness all over her entire body like sunburn. She states the top layer of her skin got very dry and flakes off like a sunburn. Since that time, her symptoms have been persistent. She took a 5-day steroid pack that she finished 5 days ago. She states this slightly improved her symptoms, relieving some of the itching and burning and improving the redness, however it did not go away. Patient states her whole body feels like a bad sunburn itching and burning. She states her skin is dry and flaky especially in areas of friction. Patient does additionally report that she had a weird rash approximately 8 months ago when she had a clot on her aorta . She states she took a blood thinner and the clot was reportedly completely dissolved so she was taken off the blood thinner. She states the rash at that time appeared more like hives and was not as burning and itching as this rash, however her skin was dry. Patient denies any painful eyes, mouth, or throat. She states the rash has not been on the palms or soles. Patient does report slight swelling in her lower extremities without shortness of breath or chest pain. She states she chronically feels cold because her skin is so hot to the touch, but she has not had fever or other associated symptoms. Hospital Course Hospital Course Hospital Course: 63-year-old female presents to the ER for concerns of diffuse rash. She states her skin is dry and flaky especially in areas of friction. Patient does additionally report that she had a weird rash approximately 8 months ago when she had a clot on her aorta . She states she took a blood thinner and the clot was reportedly completely dissolved so she was taken off the blood thinner. reason that deemed to perform CTA of chest whrn the left segmental pulmonary embolism was a main concern. Patient remains tachycardic on ER with severe eosinophylia. ED requested admission for further monitoring and management. Admitted to medicine. Stable overnight. Addressed rash with steroids, anticoagulants for PE. Due to her medical stability, will discharge home for further management as an outpatient. -Stable left acute pulmonary embolism: tachycardia. no right heart strain Admitted overnight, received subcu Lovenox. Transitioned to Eliquis. Will complete 7 days of 10 mg twice daily and transition to 5 mg twice daily thereafter. Will likely need long-term anticoagulation given this is not her first episode of DVT/PE. No signs of right heart strain. No oxygen requirement. Troponins negative. RV to LV ratio less than [address] -eosinophilia and xerosis, suspected atopic dermatitis versus hypereosinophilia versus hyper IgE. loaded with 160mg solumedrol at ED. transition to oral steroids. Will treat with a 21-day taper starting at 60 mg tapering every 3 days. Patient needs follow-up with auto body mechanic apprentice. Recommend holding on aspirin at this time due to onset of rash after taking aspirin. Unclear etiology. Encouraged moisturizing creams/ointments such as Vaseline or Eucerin. No signs of superficial infection. White count normal at 6.3. Eosinophils elevated at 1700 on admission, repeat labs on day of discharge showed eosinophils dropping down to almost 0. LFTs were normal during admission. HTN and Asthma: Stable, continue home regimen smoker: on nicotine patch. education on smoking cessation strategies was provided Total time spent on discharge 32 minutes in counseling, documentation, chart review, and direct care with patient. Exam Data for Last 24 hours Vital signs and Labs for Last 24 Hours: Temp Pulse Resp BP Pulse Ox O2 Del Method 98.3 F 92 H 19 105/60 L 97 Room Air 05/26/24 08:00 05/26/24 08:00 05/26/24 08:00 05/26/24 08:00 05/26/24 08:00 05/26/24 10:53 Laboratory Results - last 24 hr 05/25/24 19:15: WBC 13.8 H, RBC 4.37, Hgb 14.3, Hct 43.5, MCV 99.7 H, MCH 32.9 H, MCHC 33.0, RDW 14.6, Plt Count 534 H, MPV 7.1 L, Neut % (Auto) 68.2, Lymph % (Auto) 13.1, [place] % (Auto) 5.5, Eos % (Auto) 12.6 H, Baso % (Auto) 0.6, Neut # (Auto) 9.4 H, Lymph # (Auto) 1.8, [place] # (Auto) 0.8, Eos # (Auto) 1.7 H, Baso # (Auto) 0.1, Sodium 138, Potassium 3.3 L, Chloride 104, Carbon Dioxide 29, Anion Gap 8.3, BUN 16, Creatinine 1.00, Estimated Creat Clear 61, Estimated GFR 56 L, Est GFR ( Amer) 68, Glucose 116 H, Calcium 8.9, Total Bilirubin 0.9, AST 30, ALT 35, Alkaline Phosphatase 105, Troponin I < 0.01, NT-Pro-B Natriuret Pep 76.1, Total Protein 7.2, Albumin 3.8, Globulin 3.4 H, Albumin/Globulin Ratio 1.1 05/25/24 23:48: Troponin I < 0.01 05/26/24 02:45: Troponin I < 0.01 05/26/24 07:40: WBC 6.3 D, RBC 3.76 L, Hgb 12.1 L D, Hct 39.2, MCV 104.3 H, MCH 32.0 H, MCHC 30.7 L, RDW 14.4, Plt Count 434 H, MPV 7.2 L, Neut % (Auto) 86.2 H, Lymph % (Auto) 11.3, [place] % (Auto) 2.1, Eos % (Auto) 0.1, Baso % (Auto) 0.2, Neut # (Auto) 5.4, Lymph # (Auto) 0.7, [place] # (Auto) 0.1, Eos # (Auto) 0.0, Baso # (Auto) 0.0, Total Counted 100, Neutrophils % (Manual) 87 H, Lymphocytes % (Manual) 11, Monocytes % (Manual) 2, Platelet Estimate Slight increase, Hypochromasia 1+, Macrocytosis 1+, Sodium 139, Potassium 3.4 L, Chloride 108 H, Carbon Dioxide 28, Anion Gap 6.4, BUN 16, Creatinine 0.80, Estimated Creat Clear 61, Estimated GFR 72, Est GFR ( Amer) 87 D, Glucose 180 H D, Calcium 8.5, Total Bilirubin 0.7, AST 25, ALT 30, Alkaline Phosphatase 84, Total Protein 5.9 L, Albumin 3.1 L D, Globulin 2.8, Albumin/Globulin Ratio 1.1 05/26/24 09:20: WBC 7.9 D, RBC 3.65 L, Hgb 11.8 L, Hct 37.2, MCV 101.8 H, MCH 32.3 H, MCHC 31.7 L, RDW 14.6, Plt Count 448 H, MPV 7.3 L, Neut % (Auto) 87.4 H, Lymph % (Auto) 9.7 L, [place] % (Auto) 2.5, Eos % (Auto) 0.1, Baso % (Auto) 0.2, Neut # (Auto) 6.9, Lymph # (Auto) 0.8, [place] # (Auto) 0.2, Eos # (Auto) 0.0, Baso # (Auto) 0.0, Total Counted 100, Neutrophils % (Manual) 87 H, Lymphocytes % (Manual) 12, Monocytes % (Manual) 1 L, Platelet Estimate Slight increase, Hypochromasia 1+, Macrocytosis 1+ I & O for Last 24 hours: Intake & Output 05/23/24 05/24/24 05/25/24 05/26/24 23:59 23:59 23:59 23:59 Intake Total 520 / 520 Output Total 0 / 0 Balance 520 / 520 Weight 68.402 kg Constitutional Constitutional: no acute distress, average body habitus and cooperative *Routine HEENT Exam Head: Present normocephalic Eye: Present EOMI and PERRL ENT: Present mucous membranes moist *Routine Neck Exam Neck: Present supple; Absent lymphadenopathy *Routine Respiratory Exam Respiratory: Present CTA bilaterally; Absent respiratory distress, rhonchi, wheezes or crackles *Routine Cardiovascular Exam Cardiovascular: Present RRR *Routine Abdominal Exam Abdominal: Present soft and normoactive bowel sounds; Absent tenderness *Routine Rectal Exam Patient deferred: visual exam *Routine Exam Patient deferred: external exam *Routine Extremities Exam Extremities: Absent cyanosis, clubbing or edema *Routine Skin Exam Skin: Present warm and rash Comments: Diffuse erythema with scale and lichenification over entirety of body. Appears pruritic. No welts, blisters, petechiae. *Routine Neurological Exam Neurological: Present alert, oriented X3 and moving all extremities; Absent altered mental status Routine Psychiatric Exam Psychiatric: Present normal affect Results Data Completed and Pending Labs on day of discharge: Labs from last 24 hours 05/26/24 05/26/24 05/26/24 09:20 07:40 02:45 WBC 7.9 D 6.3 D RBC 3.65 L 3.76 L Hgb 11.8 L 12.1 L D Hct 37.2 39.2 MCV 101.8 H 104.3 H MCH 32.3 H 32.0 H MCHC 31.7 L 30.7 L RDW 14.6 14.4 Plt Count 448 H 434 H MPV 7.3 L 7.2 L Neut % (Auto) 87.4 H 86.2 H Lymph % (Auto) 9.7 L 11.3 [place] % (Auto) 2.5 2.1 Eos % (Auto) 0.1 0.1 Baso % (Auto) 0.2 0.2 Neut # (Auto) 6.9 5.4 Lymph # (Auto) 0.8 0.7 [place] # (Auto) 0.2 0.1 Eos # (Auto) 0.0 0.0 Baso # (Auto) 0.0 0.0 Total Counted 100 100 Neutrophils % (Manual) 87 H 87 H Lymphocytes % (Manual) 12 11 Monocytes % (Manual) 1 L 2 Platelet Estimate Slight increase Slight increase Hypochromasia 1+ 1+ Macrocytosis 1+ 1+ Sodium 139 Potassium 3.4 L Chloride 108 H Carbon Dioxide 28 Anion Gap 6.4 BUN 16 Creatinine 0.80 Estimated Creat Clear 61 Estimated GFR 72 Est GFR ( Amer) 87 D Glucose 180 H D Calcium 8.5 Total Bilirubin 0.7 AST 25 ALT 30 Alkaline Phosphatase 84 Troponin I < 0.01 NT-Pro-B Natriuret Pep Total Protein 5.9 L Albumin 3.1 L D Globulin 2.8 Albumin/Globulin Ratio 1.1 05/25/24 05/25/24 23:48 19:15 WBC 13.8 H RBC 4.37 Hgb 14.3 Hct 43.5 MCV 99.7 H MCH 32.9 H MCHC 33.0 RDW 14.6 Plt Count 534 H MPV 7.1 L Neut % (Auto) 68.2 Lymph % (Auto) 13.1 [place] % (Auto) 5.5 Eos % (Auto) 12.6 H Baso % (Auto) 0.6 Neut # (Auto) 9.4 H Lymph # (Auto) 1.8 [place] # (Auto) 0.8 Eos # (Auto) 1.7 H Baso # (Auto) 0.1 Total Counted Neutrophils % (Manual) Lymphocytes % (Manual) Monocytes % (Manual) Platelet Estimate Hypochromasia Macrocytosis Sodium 138 Potassium 3.3 L Chloride 104 Carbon Dioxide 29 Anion Gap 8.3 BUN 16 Creatinine 1.00 Estimated Creat Clear 61 Estimated GFR 56 L Est GFR ( Amer) 68 Glucose 116 H Calcium 8.9 Total Bilirubin 0.9 AST 30 ALT 35 Alkaline Phosphatase 105 Troponin I < 0.01 < 0.01 NT-Pro-B Natriuret Pep 76.1 Total Protein 7.2 Albumin 3.8 Globulin 3.4 H Albumin/Globulin Ratio 1.1 DS: Diagnosis Discharge Diagnosis (1) Pulmonary embolism: Status: Acute Code(s): I26.99 - Other pulmonary embolism without acute cor pulmonale (2) Erythroderma: Status: Acute Code(s): L53.9 - Erythematous condition, unspecified (3) Eosinophilia: Status: Acute Code(s): D72.10 - Eosinophilia, unspecified Meds Home Medications and Allergies Home Medications ?Medication ?Instructions ?Recorded ?Confirmed ?Type amlodipine 5 mg tablet 5 mg PO DAILY 09/16/23 05/25/24 History famotidine 20 mg tablet 20 mg PO BID 09/16/23 05/25/24 History hydrochlorothiazide 12.5 mg capsule 12.5 mg PO DAILY 09/16/23 05/25/24 History montelukast 10 mg tablet 10 mg PO HS 09/16/23 05/26/24 History apixaban 5 mg tablet (Eliquis) See Rx Instructions .Route 05/26/24 Rx .COMPLEX 30 days #72 tabs budesonide-formoterol HFA 160 2 puff inhalation BID 05/26/24 05/26/24 History mcg-4.5 mcg/actuation aerosol inhaler (Breyna) hydroxyzine HCl 25 mg tablet 25 mg PO HS 05/26/24 05/26/24 History loratadine 10 mg tablet 10 mg PO DAILY 05/26/24 05/26/24 History prednisone 10 mg tablet See Rx Instructions .Route 05/26/24 Rx .COMPLEX 21 days #65 tabs New Prescriptions to Start Prescriptions: apixaban [Eliquis] Luis Hornder,Luis Allergies Allergy/AdvReac Type Severity Reaction Status Date / Time acetaminophen [From Percocet] Allergy Severe Rash Verified 09/16/23 13:37 oxycodone [From Percocet] Allergy Severe Rash Verified 09/16/23 13:37 Discharge Plan Disposition Patient Disposition: Home, Self-Care Condition: Fair Follow up Plan Follow up with: Angie Bright MD [Referring] - Enter time for follow up (2-4 weeks please call office for appointment) Eris Kenyon [Primary Care Provider] - 06/02/24 11:00 am Prescriptions/Medication Reconciliation: New Eliquis 5 mg Tablet See Rx Instructions .ROUTE .COMPLEX 30 Days Qty: 72 0RF Rx Instructions: 2 tabs (10mg) BID for 6 days followed by 1 tab (5mg) BID thereafter prednisone 10 mg tablet See Rx Instructions .ROUTE .COMPLEX 21 Days Qty: 65 0RF Rx Instructions: 3-week taper. 60 mg for 3 days, 50 mg for 3 days, 40 mg for 3 days, 30 mg for 3 days, 20 mg for 3 days, 10 mg for 3 days, 5 mg for 3 days. Continued montelukast 10 mg tablet 10 mg PO HS Patient Comments: TAKE 1 TABLET BY MOUTH ONCE DAILY AT BEDTIME hydrochlorothiazide 12.5 mg capsule 12.5 mg PO DAILY Patient Comments: TAKE 1 CAPSULE BY MOUTH ONCE DAILY famotidine 20 mg tablet 20 mg PO BID Patient Comments: TAKE 1 TABLET BY MOUTH TWICE DAILY amlodipine 5 mg tablet 5 mg PO DAILY Patient Comments: TAKE 1 TABLET BY MOUTH ONCE DAILY hydroxyzine HCl 25 mg tablet 25 mg PO HS Patient Comments: TAKE 1 TABLET BY MOUTH NIGHTLY loratadine 10 mg tablet 10 mg PO DAILY Patient Comments: TAKE 1 TABLET BY MOUTH ONCE DAILY budesonide-formoterol [Breyna] 160-4.5 mcg/actuation HFA aerosol inhaler 2 puff INHALATION BID Patient Comments: INHALE 2 PUFFS BY MOUTH TWICE DAILY Problem Reconciliation Problems Reviewed?: Yes Patient Discharge Instructions ACTIVITY: Continue current activity DIET: continue same diet Patient Instructions: DI for Pulmonary Embolism, DI for Tachycardia, DI for Rash Print Language: [place] Providers Primary Care Provider: Eris Kenyon Admit Provider: Luis Horn Attending Provider: Luis Horn
[2024-05-26 12:00] VITALS: PULSE 100
--- NOTE | 2024-05-28 12:40 | CARE MANAGER ---
Attempted to contact patient x2 related to hospital discharge. ROBLES Morales
== END 2024-05-26 12:38 | disposition home or self-care (01) ==
LOC: ER 22:14 → 2ND 22:42
PROVIDERS: Nurse Practitioner Family; Admitting Provider Internal Medicine Adolescent Medicine; Emergency Provider Emergency Medicine; PCP Pediatrics; Visit Provider Internal Medicine Adolescent Medicine
DX: I26.99 Other pulmonary embolism without acute cor pulmonale (principal); I10 Essential (primary) hypertension; F17.210 Nicotine dependence, cigarettes, uncomplicated; L53.9 Erythematous condition, unspecified; D72.10 Eosinophilia, unspecified; Z79.899 Other long term (current) drug therapy
CPT/HCPCS: 36415; 71275; 80053; 83880; 84484; 85007; 85014; 85018; 85025; 85027; 85048; 85049; 99285; G0378; J1200; J2919; J7120; Q9967

== ENCOUNTER 2024-06-19 17:25 | Emergency (ER) | payer BC, SELFPAY ==
[2024-06-19 17:35] VITALS: BP 116/94; PULSE 115; O2SAT 98
[2024-06-19 17:50] VITALS: BP 116/94; PULSE 114; RESP 20; TEMP 36.7; O2SAT 97; BMI 27.2
[2024-06-19 18:27] LABS: Basophils # 0.1 K/mm3 (0-0.2); Basophils % 0.5 % (0.1-2.0); Chloride 104 mmol/L (98-107); Eosinophils # 0.7 K/mm3 (0.0-0.4); Eosinophils % 6.7 % (0.1-12.0); Hematocrit 43.2 % (37.0-47.0); Hemoglobin 13.4 g/dL (12.2-16.2); Lymphocytes # 1.8 K/mm3 (0.7-4.5); Lymphocytes % 17.4 % (10-50); Mean Corpuscular HGB Conc 31.1 g/dL (31.8-35.4); Mean Corpuscular Hemoglobin 32.2 pg (27.0-31.2); Mean Corpuscular Volume 103.3 fl (81-99); Mean Platelet Volume 6.6 fl (7.4-10.4); Monocytes # 0.5 K/mm3 (0.1-1.0); Monocytes % 5.2 % (1.7-9.3); Neutrophils # 7.2 K/mm3 (1.8-7.8); Neutrophils % 70.2 % (37.0-80.0); Platelet Count 423 K/mm3 (142-424); Red Blood Count 4.18 M/mm3 (4.20-5.40); Red Cell Distribution Width 13.8 % (11.5-17.5); White Blood Count 10.2 K/mm3 (4.8-10.8)
[2024-06-19 18:28] LABS: Sodium 139 mmol/L (136-145)
[2024-06-19 18:30] LABS: Blood Urea Nitrogen 13 mg/dl (7-17); Estimated Glomerular Filt Rate 41 ml/min (>60); GFR (African American) 50 ML/MIN (>60)
[2024-06-19 18:31] LABS: Calcium 8.9 mg/dl (8.4-10.2); Carbon Dioxide 30 mmol/L (22.0-30.0); Glucose 94 mg/dl (74-100)
[2024-06-19 18:45] VITALS: PULSE 99; O2SAT 98
[2024-06-19] MEDS: POTASSIUM CHLORIDE 20MEQ TAB 80 MEQ PO (19:13)
[2024-06-19 19:54] VITALS: BP 147/89; PULSE 94; RESP 20; O2SAT 97
--- NOTE | 2024-06-19 20:17 | ED_ITS ---
Discharge Plan Disposition Patient Disposition: Home, Self-Care Condition: Good Prescriptions Prescriptions: New cephalexin 500 mg capsule 500 mg PO Q6H 10 Days Qty: 40 0RF No Action montelukast 10 mg tablet 10 mg PO HS Patient Comments: TAKE 1 TABLET BY MOUTH ONCE DAILY AT BEDTIME hydrochlorothiazide 12.5 mg capsule 12.5 mg PO DAILY Patient Comments: TAKE 1 CAPSULE BY MOUTH ONCE DAILY famotidine 20 mg tablet 20 mg PO BID Patient Comments: TAKE 1 TABLET BY MOUTH TWICE DAILY amlodipine 5 mg tablet 5 mg PO DAILY Patient Comments: TAKE 1 TABLET BY MOUTH ONCE DAILY hydroxyzine HCl 25 mg tablet 25 mg PO HS Patient Comments: TAKE 1 TABLET BY MOUTH NIGHTLY loratadine 10 mg tablet 10 mg PO DAILY Patient Comments: TAKE 1 TABLET BY MOUTH ONCE DAILY budesonide-formoterol [Breyna] 160-4.5 mcg/actuation HFA aerosol inhaler 2 puff INHALATION BID Patient Comments: INHALE 2 PUFFS BY MOUTH TWICE DAILY Eliquis 5 mg Tablet See Rx Instructions .ROUTE .COMPLEX 30 Days Qty: 72 0RF Rx Instructions: 2 tabs (10mg) BID for 6 days followed by 1 tab (5mg) BID thereafter prednisone 10 mg tablet See Rx Instructions .ROUTE .COMPLEX 21 Days Qty: 65 0RF Rx Instructions: 3-week taper. 60 mg for 3 days, 50 mg for 3 days, 40 mg for 3 days, 30 mg for 3 days, 20 mg for 3 days, 10 mg for 3 days, 5 mg for 3 days. Referrals Follow up/Referrals: Eris Kenyon [Primary Care Provider] - See instructions Clinical Impressions Clinical Impression: Cellulitis Instructions Patient Instructions: DI for Cellulitis -- Adult, Cellulitis Print Language Print Language: Wolof Discharge ED Provider: Maverick Lockhart General Adult HPI General Chief complaint: Extremity Problem,Nontraumatic Stated complaint: Feet swelling,legs swollen with drainage Time Seen by Provider: 06/19/24 17:45 Mode of Arrival: Ambulatory Source of Information: Patient Limitations: No Limitations Description of Symptoms (Recalled from ER Triage Doc. by RN): PT C/O BLE EDEMA AND TIGHTNESS. PTS LEGS ARE RED, SCALY AND HOT TO THE TOUCH. PT REPORTS THE EDEMA IS NEW THE LAST 7-10D. PT REPORTS SHE HAS HAD A RASH INTERMITTANTLY SINCE SHE RECEIVED THE FIRST COVID VACCINE WHEN IT ORIGINALLY CAME OUT. PT REPORTS SHE HAS SEEN NUMEROUS DOCTORS TRYING TO FIGURE OUT THE CAUSE OF THE RASH. PT STATES SHE WAS HERE 3-4WKS AGO AND WAS DX WITH MULTIPLE SMALL PE'S. AT THIS TIME SHE WAS STARTED ON A BLOOD THINNER. PT STATES SHE IS CONCERNED FOR BLOOD CLOTS IN HER LEGS. PT DENIES ANY HEART HX. History of Present Illness HPI narrative: 63yoF patient presents with a chief complaint of bilateral lower extremity swelling for approximately one and a half weeks. She reports that her legs are seeping clear fluid in the evening, but they do not hurt, just feel tight. 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 The patient also has a history of asthma and COPD. She mentions that the swelling is associated with a rash and has been using Vaseline to keep her skin moist but stopped applying it on her feet due to the seeping. Rash has been present for approximately a month and is full-body. Patient has been seen by physician for rash and is currently being treated, denies other symptoms or concerns at this time including fever, recent illness beyond listed as above, shortness of breath, chest pain Related Data Home Medications ?Medication ?Instructions ?Recorded ?Confirmed amlodipine 5 mg tablet 5 mg PO DAILY 09/16/23 05/25/24 famotidine 20 mg tablet 20 mg PO BID 09/16/23 05/25/24 hydrochlorothiazide 12.5 mg capsule 12.5 mg PO DAILY 09/16/23 05/25/24 montelukast 10 mg tablet 10 mg PO HS 09/16/23 05/26/24 budesonide-formoterol HFA 160 2 puff inhalation BID 05/26/24 05/26/24 mcg-4.5 mcg/actuation aerosol inhaler (Breyna) hydroxyzine HCl 25 mg tablet 25 mg PO HS 05/26/24 05/26/24 loratadine 10 mg tablet 10 mg PO DAILY 05/26/24 05/26/24 Previous Rx's ?Medication ?Instructions ?Recorded apixaban 5 mg tablet (Eliquis) See Rx Instructions .Route 05/26/24 .COMPLEX 30 days #72 tabs prednisone 10 mg tablet See Rx Instructions .Route 05/26/24 .COMPLEX 21 days #65 tabs cephalexin 500 mg capsule 500 mg PO Q6H 10 days #40 caps 06/19/24 Allergies Allergy/AdvReac Type Severity Reaction Status Date / Time acetaminophen [From Percocet] Allergy Severe Rash Verified 09/16/23 13:37 oxycodone [From Percocet] Allergy Severe Rash Verified 09/16/23 13:37 COVID VACCINE Allergy Rash Uncoded 06/19/24 18:47 [facility] Disclaimer: The information contained in this section may have been updated after the patient was seen, as this information can be updated by other users. Medical History (Updated 06/19/24 @ 20:32 by Maverick Lockhart DO) Asthma Surgical History H/O: hysterectomy Family History Other Asthma Eczema Hyperlipidemia Hypertension Social History (Updated 05/25/24 @ 22:57 by Beverley Vu RN) Smoking Status: Current every day smoker alcohol intake: never current occupational status: unemployed Travel in the last 8 weeks: None ROS Obtained: Yes Systems reviewed as appropriate & no additional complaints except as documented Physical Exam General General appearance: alert and in no apparent distress Head Head exam: atraumatic and normocephalic Eye Eye exam: Present normal appearance and EOMI ENT ENT exam: Present normal exam Neck Neck exam: Present normal inspection Chest Chest inspection: Present normal inspection and symmetric chest wall rise Respiratory Respiratory exam: Present normal lung sounds bilaterally Cardiovascular Cardiovascular exam: Present regular rate, normal rhythm and normal heart sounds Abdominal Exam Abdominal exam: Present soft and normal bowel sounds; Absent distention or tenderness Extremities Exam Extremities exam: Present full ROM, tenderness (Mild tenderness to palpation of bilateral lower extremities at calf and ankle), normal capillary refill and edema; Absent normal inspection (Findings of venous stasis changes lower extremities, erythema noted bilateral lower extremities however consistent with upper extremities chest and abdomen consistent with patient's known rash) Back Exam Back exam: Present normal inspection Neurological Exam Neurological exam: Present alert and oriented X3 Psychiatric Psychiatric exam: Present normal affect and normal mood Skin Skin exam: Present warm, dry, intact, normal color, rash (As above) and erythema (As above) Medical Decision Making Medical Records Medical records reviewed: Yes I reviewed the patient's medical records. Prabhakar Inquiry Pt receiving controlled substance: No Vital Signs: 06/19/24 17:35 06/19/24 17:50 06/19/24 18:45 Temperature 98.1 F Temperature Source Oral Pulse Rate 115 H 99 H Pulse Rate [Left] 114 H Respiratory Rate 20 Blood Pressure 116/94 H Blood Pressure [Right Arm] 116/94 H Blood Pressure Mean [Right Arm] 101 Blood Pressure Source Blood Pressure Source [Right Arm] Automatic Cuff Blood Pressure Position Blood Pressure Position [Right Arm] Sitting 02 Sat by Pulse Oximetry 98 97 98 Oxygen Delivery Method Room Air 06/19/24 19:54 06/19/24 20:39 Temperature 97.8 F Temperature Source Pulse Rate 94 H 91 H Pulse Rate [Left] Respiratory Rate 20 18 Blood Pressure 147/89 H 135/78 Blood Pressure [Right Arm] Blood Pressure Mean [Right Arm] Blood Pressure Source Automatic Cuff Blood Pressure Source [Right Arm] Blood Pressure Position Supine Blood Pressure Position [Right Arm] 02 Sat by Pulse Oximetry 97 Oxygen Delivery Method Room Air Lab Data Lab Results 06/19/24 18:00: WBC 10.2, RBC 4.18 L, Hgb 13.4, Hct 43.2, MCV 103.3 H, MCH 32.2 H, MCHC 31.1 L, RDW 13.8, Plt Count 423, MPV 6.6 L, Neut % (Auto) 70.2, Lymph % (Auto) 17.4, [place] % (Auto) 5.2, Eos % (Auto) 6.7, Baso % (Auto) 0.5, Neut # (Auto) 7.2, Lymph # (Auto) 1.8, [place] # (Auto) 0.5, Eos # (Auto) 0.7 H, Baso # (Auto) 0.1, Sodium 139, Potassium 3.0 L, Chloride 104, Carbon Dioxide 30, Anion Gap 8.0, BUN 13, Creatinine 1.30 H, Estimated GFR 41 L, Est GFR ( Amer) 50 L, Glucose 94, Calcium 8.9 06/19/24 18:00 06/19/24 18:00 Orders (Tests/Meds): ED MEDICATIONS Discontinued Medications Generic Name Dose Route Start Last Admin Trade Name Freq PRN Reason Stop Dose Admin Cephalexin HCl 500 mg 06/19/24 20:20 06/19/24 20:23 Cephalexin 500mg Capsule PO 06/19/24 20:21 500 mg ONCE ONE Administration Potassium Chloride 40 meq 06/19/24 18:59 06/19/24 19:09 Potassium Chloride 20meq Tab PO 06/19/24 20:00 Not Given Q1H MAXWELL Potassium Chloride 80 meq 06/19/24 19:10 06/19/24 19:13 Potassium Chloride 20meq Tab PO 06/19/24 19:11 80 meq ONCE ONE Administration ORDERS Category Date Time Status POCUS Point of Care (ER Only) Stat Exams 06/19/24 18:20 Taken BMP [Basic Metabolic Panel] Stat Lab 06/19/24 18:00 Completed CBC w/Auto Diff [Complete Blood Count Auto Diff] Stat Lab 06/19/24 18:00 Completed Medical Decision Narrative: Patient with history and exam per above presenting for evaluation of bilateral lower extremity swelling for 1 week Diagnoses considered include DVT, cellulitis, rash ED workup and treatment included: As above Labs were independently interpreted by me, significant for no noted leukocytosis, mildly elevated creatinine negative for REILLY per rifle criteria?laboratory workup grossly nonactionable at this time Imaging was independently visualized and interpreted by me, significant for [id number] ultrasound at bedside negative for DVT per 3 point assessment on bilateral lower extremities, cellulitis noted bilaterally at calves. Please refer to radiology report for full details. My clinical impression at this time is most consistent with cellulitis. Given patient ambulatory without significant laboratory abnormalities and denying fever discussion was had about outpatient antibiotic treatment with follow-up with primary care. Patient agreeable with this plan. Keflex prescribed. Patient given strict instructions to return to ED if symptoms worsen. Discharged home with hemodynamically stable vitals I discussed my clinical impression with patient and answered all questions. At this time, the evidence for any other entities in the differential is insufficient to warrant any further testing or ED observation. This was explained to the patient. The patient was advised that persistent or worsening symptoms require further evaluation. Procedures Limited Ultrasound Indication:: Bilateral lower extremity swelling and redness Views:: 3 point DVT assessment at CFV, femoral vein, popliteal vein performed. Soft tissue ultrasound performed of bilateral lower extremities at calf Findings:: Negative for DVT on 3 point compression assessment bilaterally in lower extremities, soft tissue assessment consistent with cellulitis on bilateral calves. Interpretation:: Cellulitis, negative DVT Critical Care Critical Care Time Critical Care Time: No
--- NOTE | 2024-06-19 20:17 | PC.NURSE ---
Dr. Lockhart at bedside for POCUS
[2024-06-19] MEDS: cephALEXin 500MG CAPSULE 500 MG PO (20:23)
[2024-06-19 20:39] VITALS: BP 135/78; PULSE 91; RESP 18; TEMP 36.6; O2SAT 97
== END 2024-06-19 20:40 | disposition home or self-care (01) ==
PROVIDERS: Emergency Provider Student in an Organized Health Care Education/Training Program; PCP Pediatrics
DX: L03.115 Cellulitis of right lower limb (principal); L03.116 Cellulitis of left lower limb; E87.6 Hypokalemia; R21 Rash and other nonspecific skin eruption; F17.210 Nicotine dependence, cigarettes, uncomplicated
CPT/HCPCS: 80048; 85025; 99283

== ENCOUNTER 2024-07-23 18:19 | Emergency (ER) | payer BC, SELFPAY ==
[2024-07-23] VITALS (7 sets, daily range): BP systolic 122–154; BP diastolic 76–100; PULSE 94–121; RESP 12–21; TEMP 36.5–36.7; O2SAT 93–99; BMI 25.4
--- NOTE | 2024-07-23 18:45 | ED_ITS ---
<Statement entered by Christiana Jeter MD - 07/23/24 23:40> I was consulted by the BRIJESH, and we discussed the complexity of problems being addressed. I approved the treatment and management plan for this patient's care in the emergency department, thus performing a substantive portion of the medical decision making. Christiana Jeter MD Discharge Plan Disposition Patient Disposition: Home, Self-Care Condition: Fair Prescriptions Prescriptions: New hydroxyzine pamoate 50 mg capsule 50 mg PO Q8H PRN (Reason: itching) 30 Days Qty: 90 0RF cephalexin 500 mg capsule 500 mg PO BID 10 Days Qty: 20 0RF No Action montelukast 10 mg tablet 10 mg PO HS Patient Comments: TAKE 1 TABLET BY MOUTH ONCE DAILY AT BEDTIME hydrochlorothiazide 12.5 mg capsule 12.5 mg PO DAILY Patient Comments: TAKE 1 CAPSULE BY MOUTH ONCE DAILY famotidine 20 mg tablet 20 mg PO BID Patient Comments: TAKE 1 TABLET BY MOUTH TWICE DAILY amlodipine 5 mg tablet 5 mg PO DAILY Patient Comments: TAKE 1 TABLET BY MOUTH ONCE DAILY cephalexin 500 mg capsule 500 mg PO Q6H 10 Days Qty: 40 0RF hydroxyzine HCl 25 mg tablet 25 mg PO HS Patient Comments: TAKE 1 TABLET BY MOUTH NIGHTLY loratadine 10 mg tablet 10 mg PO DAILY Patient Comments: TAKE 1 TABLET BY MOUTH ONCE DAILY budesonide-formoterol [Breyna] 160-4.5 mcg/actuation HFA aerosol inhaler 2 puff INHALATION BID Patient Comments: INHALE 2 PUFFS BY MOUTH TWICE DAILY Eliquis 5 mg Tablet See Rx Instructions .ROUTE .COMPLEX 30 Days Qty: 72 0RF Rx Instructions: 2 tabs (10mg) BID for 6 days followed by 1 tab (5mg) BID thereafter prednisone 10 mg tablet See Rx Instructions .ROUTE .COMPLEX 21 Days Qty: 65 0RF Rx Instructions: 3-week taper. 60 mg for 3 days, 50 mg for 3 days, 40 mg for 3 days, 30 mg for 3 days, 20 mg for 3 days, 10 mg for 3 days, 5 mg for 3 days. Referrals Follow up/Referrals: Eris Kenyon [Primary Care Provider] - See instructions Activity Restrictions/Add. Instructions Additional Instructions/Restrictions: Take hydroxyzine every 8 hours as needed for itching. May also take the Keflex as needed for the cellulitis. Please follow-up with the [facility] that you are already scheduled with. Talk to your primary care physician if any further treatment is needed. Feel free to return to the ER with any emergent situations. Clinical Impressions Clinical Impression: Cellulitis, Urticaria Instructions Patient Instructions: Cellulitis Print Language Print Language: [place] Discharge ED Provider: Christiana Jeter General Adult HPI General Chief complaint: Skin/Abscess/Foreign Body Stated complaint: swelling in legs, rash Time Seen by Provider: 07/23/24 18:30 Mode of Arrival: Ambulatory Source of Information: Patient Limitations: No Limitations Description of Symptoms (Recalled from ER Triage Doc. by RN): pt presents to the er for a rash all over, states it started about 2.5 years ago after getting the covid vaccine per pt, also report ble swelling, states she was seen here in may for the same thing where she was dx with cellulitis, did an ultrasound and sent pt home on antibiotics and prednisone, states it helped until about a week ago, states she is miserable and unable to sleep, trying wearing compression stockings but it made it worse along with bendryl History of Present Illness HPI narrative: 63-year-old female presents to the ED today for complaint of bilateral lower extremity swelling, rash that covers her entire body diffusely. She states that it itches, schwartz and hurts. States that it has been going on for the last 2-1/2 years since she had her COVID shot. She says she has no open sores and she was told since she has no open sores she has no MRSA. She was told to get compressi on socks so she did this and wore them. She wore them until she got open sores and then she took them off. She let them heal up and improve some but they never improved to where the rash has disappeared. She states that she has a [facility] appointment in a month and that will be the fifth doctor she has been to over this rash in the last 2 and half years. She says the only thing she has been given its steroids and hydroxyzine that has even helped a small amount. 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 She does take Eliquis daily. She says Benadryl makes the rash worse. She is allergic to Percocet. No new lotions soaps or detergents. No other associated signs or symptoms at this time Related Data Home Medications ?Medication ?Instructions ?Recorded ?Confirmed amlodipine 5 mg tablet 5 mg PO DAILY 09/16/23 05/25/24 famotidine 20 mg tablet 20 mg PO BID 09/16/23 05/25/24 hydrochlorothiazide 12.5 mg capsule 12.5 mg PO DAILY 09/16/23 05/25/24 montelukast 10 mg tablet 10 mg PO HS 09/16/23 05/26/24 budesonide-formoterol HFA 160 2 puff inhalation BID 05/26/24 05/26/24 mcg-4.5 mcg/actuation aerosol inhaler (Breyna) hydroxyzine HCl 25 mg tablet 25 mg PO HS 05/26/24 05/26/24 loratadine 10 mg tablet 10 mg PO DAILY 05/26/24 05/26/24 Previous Rx's ?Medication ?Instructions ?Recorded apixaban 5 mg tablet (Eliquis) See Rx Instructions .Route 05/26/24 .COMPLEX 30 days #72 tabs prednisone 10 mg tablet See Rx Instructions .Route 05/26/24 .COMPLEX 21 days #65 tabs cephalexin 500 mg capsule 500 mg PO Q6H 10 days #40 caps 06/19/24 cephalexin 500 mg capsule 500 mg PO BID 10 days #20 caps 07/23/24 hydroxyzine pamoate 50 mg capsule 50 mg PO Q8H PRN itching 30 days 07/23/24 #90 caps Allergies Allergy/AdvReac Type Severity Reaction Status Date / Time acetaminophen [From Percocet] Allergy Severe Rash Verified 09/16/23 13:37 oxycodone [From Percocet] Allergy Severe Rash Verified 09/16/23 13:37 COVID VACCINE Allergy Rash Uncoded 06/19/24 18:47 PFSH PFS Disclaimer: The information contained in this section may have been updated after the patient was seen, as this information can be updated by other users. Medical History (Updated 07/23/24 @ 21:08 by Kierra Parks (ED), SYSTEMS PROTECTION TECHNICIAN) Asthma Surgical History H/O: hysterectomy Family History Other Asthma Eczema Hyperlipidemia Hypertension Social History (Updated 05/25/24 @ 22:57 by Beverley Vu RN) Smoking Status: Never smoker alcohol intake: never current occupational status: unemployed Travel in the last 8 weeks: None ROS Obtained: Yes Systems reviewed as appropriate & no additional complaints except as documented Constitutional Constitutional: Reports as per HPI Physical Exam General General appearance: alert, anxious and other (In distress due to the rash that covers her body) Head Head exam: atraumatic and normocephalic Eye Eye exam: Present normal appearance, PERRL and EOMI ENT ENT exam: Present mucous membranes moist Neck Neck exam: Present normal inspection, full ROM and trachea midline Chest Chest inspection: Present normal inspection Respiratory Respiratory exam: Present normal lung sounds bilaterally Cardiovascular Cardiovascular exam: Present regular rate, normal rhythm, normal heart sounds, +S1 and +S2 Abdominal Exam Abdominal exam: Present soft and normal bowel sounds Extremities Exam Extremities exam: Present normal inspection, full ROM, normal capillary refill, edema and other (Swelling to bilateral lower extremities, erythema with raised red rash, no drainage) Neurological Exam Neurological exam: Present alert and oriented X3 Psychiatric Psychiatric exam: Present agitated and anxious Skin Skin exam: Present warm and rash (Raised, hive-like covers body diffusely no drainage) Medical Decision Making Medical Records Screening: Per USPSTF and CDC recommendations, given the prevalence of disease in our region, it is our hospital?s policy to screen for HIV and viral Hepatitis for all patients aged 18 and over and those with ongoing risk factors. Prabhakar Inquiry Pt receiving controlled substance: No Vital Signs: 07/23/24 18:21 07/23/24 18:24 07/23/24 18:30 Temperature 97.7 F Temperature Source Oral Pulse Rate 121 H 115 H Pulse Rate [Right Radial] 121 H Respiratory Rate 16 21 Blood Pressure 153/100 H 147/97 H Blood Pressure [Right Arm] 153/100 H Blood Pressure Mean 110 108 Blood Pressure Mean [Right Arm] 117 Blood Pressure Source [Right Arm] Automatic Cuff Blood Pressure Position [Right Arm] Sitting 02 Sat by Pulse Oximetry 98 97 98 Oxygen Delivery Method Room Air 07/23/24 19:00 07/23/24 20:03 Temperature Temperature Source Pulse Rate 114 H 108 H Pulse Rate [Right Radial] Respiratory Rate 19 12 Blood Pressure 135/88 154/97 H Blood Pressure [Right Arm] Blood Pressure Mean 108 Blood Pressure Mean [Right Arm] Blood Pressure Source [Right Arm] Blood Pressure Position [Right Arm] 02 Sat by Pulse Oximetry 98 93 L Oxygen Delivery Method Orders (Tests/Meds): ED MEDICATIONS Generic Name Dose Route Start Last Admin Trade Name Freq PRN Reason Stop Dose Admin Sodium Chloride 10 ml 07/23/24 18:38 Sodium Chloride 0.9% 10ml Flush Syringe IV 08/22/24 18:37 NEEDED PRN Maintain IV Site Sodium Chloride 8 ml 07/23/24 18:42 Sodium Chloride 0.9% 10ml Vial IV 08/22/24 18:41 NEEDED PRN dilute pepcid Sodium Chloride 10 ml 07/23/24 19:38 Sodium Chloride 0.9% 10ml Vial IV 08/22/24 19:37 NEEDED PRN to Dilute Lorazepam inj Discontinued Medications Generic Name Dose Route Start Last Admin Trade Name Freq PRN Reason Stop Dose Admin Famotidine 20 mg 07/23/24 18:42 07/23/24 18:58 Famotidine 20mg/2ml Vial IV 07/23/24 18:43 20 mg ONCE ONE Administration Hydroxyzine HCl 50 mg 07/23/24 18:42 07/23/24 18:58 Hydroxyzine 50mg/Ml Vial IM 07/23/24 18:43 50 mg ONCE ONE Administration Lorazepam 1 mg 07/23/24 19:38 07/23/24 19:47 Lorazepam 2mg/Ml Vial IV 07/23/24 19:39 1 mg ONCE ONE Administration Methylprednisolone Sodium Succinate 125 mg 07/23/24 18:42 07/23/24 18:57 Methylprednisolone Sod Succ 125mg Vial IV 07/23/24 18:43 125 mg ONCE ONE Administration ORDERS Category Date Time Status HIV (1&2) Antibody Rapid Stat Lab 07/23/24 18:35 Received Hep C Ab with Reflex to RNA Stat Lab 07/23/24 18:35 Received Medical Decision Narrative: Insert review patient is a 63-year-old female presenting to the emergency department for evaluation of rash covering body diffusely. Patient is hemodynamically stable and nontoxic-appearing upon arrival, afebrile. Differential diagnosis includes rash, cellulitis. Workup will be conducted with [hematologic labs, specific imaging, provocative tests]. Initial inventions include Solu-Medrol, hydroxyzine and famotidine. [Imaging informally interpreted by me and remarkable for:] [Formal imaging read remarkable for:] Upon repeat evaluation [patient's pain is improved, appears better perfused, appears the same, appears worse, etc.]. Due to this [additional interventions, patient is appropriate for discharge, patient requires admission, etc.]. Critical Care Critical Care Time Critical Care Time: No
[2024-07-23] MEDS: METHYLPREDNISOLONE SOD SUCC 125MG VIAL 125 MG IV (18:57)
[2024-07-23] MEDS: FAMOTIDINE 20MG/2ML VIAL 20 MG IV (18:58)
[2024-07-23] MEDS: hydrOXYzine 50MG/ML VIAL 50 MG IM (18:58)
[2024-07-23] MEDS: LORazepam 2MG/ML VIAL 1 MG IV (19:47)
[2024-07-24 07:22] LABS: HIV (1&2) Antibody Rapid NONREACTIVE (NONREACTIVE)
[2024-07-25 08:11] LABS: HCV Ab Non Reactive (Non Reactive)
== END 2024-07-23 21:23 | disposition home or self-care (01) ==
PROVIDERS: Emergency Provider Student in an Organized Health Care Education/Training Program; PCP Pediatrics
DX: L03.115 Cellulitis of right lower limb (principal); L03.116 Cellulitis of left lower limb; J45.909 Unspecified asthma, uncomplicated; Z79.01 Long term (current) use of anticoagulants; Z86.718 Personal history of other venous thrombosis and embolism
CPT/HCPCS: 86803; 87389; 96372; 96374; 96375; 99285; J2060; J2919; J3410; S0028

== ENCOUNTER 2024-08-06 18:27 | Emergency (ER) | payer BC, SELFPAY ==
[2024-08-06 18:29] VITALS: BP 152/85; PULSE 117; RESP 20; TEMP 36.7; O2SAT 97; BMI 25.4
--- NOTE | 2024-08-06 18:44 | ED_ITS ---
<Statement entered by Diamond Berger MD - 08/06/24 22:18> I was consulted by the BRIJESH, and we discussed the complexity of the problems being addressed. I approved the treatment and management plan for this patient's care in the emergency department, thus performing a substantive portion of the medical decision making. Diamond Berger MD, DESTINEE, FACEP Discharge Plan Disposition Patient Disposition: Home, Self-Care Condition: Fair Prescriptions Prescriptions: New potassium chloride 20 mEq tablet extended release 20 meq PO BID 5 Days Qty: 10 0RF No Action montelukast 10 mg tablet 10 mg PO HS Patient Comments: TAKE 1 TABLET BY MOUTH ONCE DAILY AT BEDTIME hydrochlorothiazide 12.5 mg capsule 12.5 mg PO DAILY Patient Comments: TAKE 1 CAPSULE BY MOUTH ONCE DAILY famotidine 20 mg tablet 20 mg PO BID Patient Comments: TAKE 1 TABLET BY MOUTH TWICE DAILY amlodipine 5 mg tablet 5 mg PO DAILY Patient Comments: TAKE 1 TABLET BY MOUTH ONCE DAILY cephalexin 500 mg capsule 500 mg PO Q6H 10 Days Qty: 40 0RF hydroxyzine HCl 25 mg tablet 25 mg PO HS Patient Comments: TAKE 1 TABLET BY MOUTH NIGHTLY loratadine 10 mg tablet 10 mg PO DAILY Patient Comments: TAKE 1 TABLET BY MOUTH ONCE DAILY budesonide-formoterol [Breyna] 160-4.5 mcg/actuation HFA aerosol inhaler 2 puff INHALATION BID Patient Comments: INHALE 2 PUFFS BY MOUTH TWICE DAILY Eliquis 5 mg Tablet See Rx Instructions .ROUTE .COMPLEX 30 Days Qty: 72 0RF Rx Instructions: 2 tabs (10mg) BID for 6 days followed by 1 tab (5mg) BID thereafter prednisone 10 mg tablet See Rx Instructions .ROUTE .COMPLEX 21 Days Qty: 65 0RF Rx Instructions: 3-week taper. 60 mg for 3 days, 50 mg for 3 days, 40 mg for 3 days, 30 mg for 3 days, 20 mg for 3 days, 10 mg for 3 days, 5 mg for 3 days. hydroxyzine pamoate 50 mg capsule 50 mg PO Q8H PRN (Reason: itching) 30 Days Qty: 90 0RF cephalexin 500 mg capsule 500 mg PO BID 10 Days Qty: 20 0RF Referrals Follow up/Referrals: Eris Kenyon [Primary Care Provider] - See instructions Activity Restrictions/Add. Instructions Additional Instructions/Restrictions: Increase fluids and rest. Take potassium as directed. Have this tested again with your primary care provider next week. Please keep your appointment with dermatology on Friday as we discussed. Continue to take hydroxyzine as directed. Clinical Impressions Clinical Impression: Erythrodermic psoriasis Instructions Patient Instructions: DI for Rash Print Language Print Language: Kinyarwanda Discharge ED Provider: Diamond Berger General Adult HPI General Chief complaint: PAIN Stated complaint: rash, chills, bilateral leg swelling Time Seen by Provider: 08/06/24 18:41 Related Data Home Medications ?Medication ?Instructions ?Recorded ?Confirmed amlodipine 5 mg tablet 5 mg PO DAILY 09/16/23 05/25/24 famotidine 20 mg tablet 20 mg PO BID 09/16/23 05/25/24 hydrochlorothiazide 12.5 mg capsule 12.5 mg PO DAILY 09/16/23 05/25/24 montelukast 10 mg tablet 10 mg PO HS 09/16/23 05/26/24 budesonide-formoterol HFA 160 2 puff inhalation BID 05/26/24 05/26/24 mcg-4.5 mcg/actuation aerosol inhaler (Breyna) hydroxyzine HCl 25 mg tablet 25 mg PO HS 05/26/24 05/26/24 loratadine 10 mg tablet 10 mg PO DAILY 05/26/24 05/26/24 Previous Rx's ?Medication ?Instructions ?Recorded apixaban 5 mg tablet (Eliquis) See Rx Instructions .Route 05/26/24 .COMPLEX 30 days #72 tabs prednisone 10 mg tablet See Rx Instructions .Route 05/26/24 .COMPLEX 21 days #65 tabs cephalexin 500 mg capsule 500 mg PO Q6H 10 days #40 caps 06/19/24 cephalexin 500 mg capsule 500 mg PO BID 10 days #20 caps 07/23/24 hydroxyzine pamoate 50 mg capsule 50 mg PO Q8H PRN itching 30 days 07/23/24 #90 caps potassium chloride 20 mEq 20 meq PO BID 5 days #10 tabs 08/06/24 tablet,extended release Allergies Allergy/AdvReac Type Severity Reaction Status Date / Time acetaminophen [From Percocet] Allergy Severe Rash Verified 09/16/23 13:37 oxycodone [From Percocet] Allergy Severe Rash Verified 09/16/23 13:37 COVID VACCINE Allergy Rash Uncoded 06/19/24 18:47 PFSH PFSH Disclaimer: The information contained in this section may have been updated after the patient was seen, as this information can be updated by other users. Medical History (Updated 08/06/24 @ 21:21 by Kierra Parks (ED), PLASTIC TOP ASSEMBLER) Asthma Surgical History H/O: hysterectomy Family History Other Asthma Eczema Hyperlipidemia Hypertension Social History (Updated 05/25/24 @ 22:57 by Beverley Vu RN) Smoking Status: Current every day smoker alcohol intake: never current occupational status: unemployed Travel in the last 8 weeks: None Other Medical History Have you received the Flu Vaccine for this season: No Have you received the Pneumonia Vaccine: No ROS Obtained: Yes Systems reviewed as appropriate & no additional complaints except as documented Constitutional Constitutional: Reports as per HPI Physical Exam General General appearance: alert and in distress Comment: From rash Head Head exam: atraumatic and normocephalic Eye Eye exam: Present normal appearance, PERRL and EOMI ENT ENT exam: Present normal exam, normal oropharynx and mucous membranes moist Neck Neck exam: Present normal inspection, full ROM and trachea midline Chest Chest inspection: Present rash Respiratory Respiratory exam: Present normal lung sounds bilaterally Cardiovascular Cardiovascular exam: Present regular rate, normal rhythm, tachycardia, +S1 and +S2 Abdominal Exam Abdominal exam: Present soft and normal bowel sounds Extremities Exam Extremities exam: Present full ROM, normal capillary refill and edema Neurological Exam Neurological exam: Present alert and oriented X3 Skin Skin exam: Present warm, dry and other (Erythematous rash wit some brownish- yellow drainage) Medical Decision Making Medical Records Screening: Per USPSTF and CDC recommendations, given the prevalence of disease in our region, it is our hospital?s policy to screen for HIV and viral Hepatitis for all patients aged 18 and over and those with ongoing risk factors. Prabhakar Inquiry Pt receiving controlled substance: No Prabhakar was queried for this patient: No Vital Signs: 08/06/24 18:29 08/06/24 21:30 Temperature 98.0 F 98.2 F Temperature Source Oral Oral Pulse Rate 100 H Pulse Rate [Right Brachial] 117 H Respiratory Rate 20 16 Blood Pressure 132/78 Blood Pressure [Right Arm] 152/85 H Blood Pressure Mean [Right Arm] 107 Blood Pressure Source [Right Arm] Automatic Cuff Blood Pressure Position [Right Arm] Supine 02 Sat by Pulse Oximetry 97 Oxygen Delivery Method Room Air Room Air Lab Data Lab Results 08/06/24 18:52: WBC 11.4 H, RBC 4.48, Hgb 14.2, Hct 41.3, MCV 92.4, MCH 31.6 H, MCHC 34.2, RDW 13.8, Plt Count 364, MPV 6.9 L, Neut % (Auto) 70.4, Lymph % (Auto) 12.7, [place] % (Auto) 6.2, Eos % (Auto) 10.4, Baso % (Auto) 0.3, Neut # (Auto) 8.1 H, Lymph # (Auto) 1.5, [place] # (Auto) 0.7, Eos # (Auto) 1.2 H, Baso # (Auto) 0.0, ESR 24, Sodium 132 L, Potassium 2.9 L*, Chloride 96 L, Carbon Dioxide 27, Anion Gap 11.9, BUN 16, Creatinine 1.00, Estimated Creat Clear 60, E stimated GFR 56 L, Est GFR ( Amer) 68, Glucose 115 H, Calcium 8.9, Total Bilirubin 1.2, AST 34, ALT 34, Alkaline Phosphatase 106, Total Protein 7.1, Albumin 4.1, Globulin 3.0, Albumin/Globulin Ratio 1.4 08/06/24 18:52 08/06/24 18:52 Orders (Tests/Meds): ED MEDICATIONS Discontinued Medications Generic Name Dose Route Start Last Admin Trade Name Paramq PRN Reason Stop Dose Admin Diphenhydramine HCl 50 mg 08/06/24 18:42 08/06/24 18:56 Diphenhydramine 50mg/Ml Vial IV 08/06/24 18:43 50 mg ONCE ONE Administration Famotidine 20 mg 08/06/24 18:42 08/06/24 18:56 Famotidine 20mg/2ml Vial IV 08/06/24 18:43 20 mg ONCE ONE Administration Lactated Ringer's 1,000 mls @ 999 mls/hr 08/06/24 18:50 08/06/24 18:56 Lactated Ringer's 1000 Ml Bag IV 08/06/24 19:50 999 mls/hr .Q1H1M ONE Administration Lactated Ringer's 1,000 mls @ 999 mls/hr 08/06/24 20:04 08/06/24 20:22 Lactated Ringer's 1000 Ml Bag IV 08/06/24 21:04 999 mls/hr .Q1H1M ONE Administration Lorazepam 1 mg 08/06/24 19:41 08/06/24 19:58 Lorazepam 2mg/Ml Vial IV 08/06/24 19:42 1 mg ONCE ONE Administration Methylprednisolone Sodium Succinate 125 mg 08/06/24 18:42 08/06/24 18:56 Methylprednisolone Sod Succ 125mg Vial IV 08/06/24 18:43 125 mg ONCE ONE Administration Potassium Chloride 60 meq 08/06/24 19:52 08/06/24 19:59 Potassium Chloride 20meq Tab PO 08/06/24 19:53 60 meq ONCE ONE Administration Sodium Chloride 8 ml 08/06/24 18:42 Sodium Chloride 0.9% 10ml Vial IV 09/05/24 18:41 NEEDED PRN dilute pepcid Sodium Chloride 10 ml 08/06/24 19:41 Sodium Chloride 0.9% 10ml Vial IV 09/05/24 19:40 NEEDED PRN to Dilute Lorazepam inj ORDERS Category Date Time Status CBC w/Auto Diff [Complete Blood Count Auto Diff] Stat Lab 08/06/24 18:52 Completed Comprehensive Metabolic Panel Stat Lab 08/06/24 18:52 Completed ESR [Erythrocyte Sedimentation Rate] Routine Lab 08/06/24 18:52 Completed HIV (1&2) Antibody Rapid Stat Lab 08/06/24 18:52 Received Hep C Ab with Reflex to RNA Stat Lab 08/06/24 18:52 Received Medical Decision Narrative: Insert review patient is a 63-year-old female presenting to the emergency department for evaluation of pruritic rash covering diffuse part of body, worse on legs. Patient is hemodynamically stable and nontoxic-appearing upon arrival, afebrile. Differential diagnosis includes psoriatic rash, inflammatory reaction, allergic reaction amongst others. Workup will be conducted with hematologic labs, no specific imaging required. Initial inventions include crystalloid bolus, Solu-Medrol, Benadryl, famotidine and Ativan for symptoms. Initial workup reviewed by vt hematologic labs are remarkable for elevated white count 11.2, potassium at 2.9 replaced by [address] Berger also evaluated patient. Discussed at length with patient that since this was a rash that she has a follow-up for on Friday with dermatology that we would replace potassium and treat symptoms. Patient will be sent home with antibiotics for the cellulitis on her legs from the rash, steroids and topicals. Patient will be safe for discharge home. Critical Care Critical Care Time Critical Care Time: No
--- NOTE | 2024-08-06 18:50 | ED_ITS ---
<Statement entered by Diamond Berger MD - 08/06/24 22:18> I was consulted by the BRIJESH, and we discussed the complexity of the problems being addressed. I approved the treatment and management plan for this patient's care in the emergency department, thus performing a substantive portion of the medical decision making. Diamond Berger MD, DESTINEE, FACEP Discharge Plan Disposition Chief Complaint: PAIN Prescriptions Prescriptions: No Action montelukast 10 mg tablet 10 mg PO HS Patient Comments: TAKE 1 TABLET BY MOUTH ONCE DAILY AT BEDTIME hydrochlorothiazide 12.5 mg capsule 12.5 mg PO DAILY Patient Comments: TAKE 1 CAPSULE BY MOUTH ONCE DAILY famotidine 20 mg tablet 20 mg PO BID Patient Comments: TAKE 1 TABLET BY MOUTH TWICE DAILY amlodipine 5 mg tablet 5 mg PO DAILY Patient Comments: TAKE 1 TABLET BY MOUTH ONCE DAILY cephalexin 500 mg capsule 500 mg PO Q6H 10 Days Qty: 40 0RF hydroxyzine HCl 25 mg tablet 25 mg PO HS Patient Comments: TAKE 1 TABLET BY MOUTH NIGHTLY loratadine 10 mg tablet 10 mg PO DAILY Patient Comments: TAKE 1 TABLET BY MOUTH ONCE DAILY budesonide-formoterol [Breyna] 160-4.5 mcg/actuation HFA aerosol inhaler 2 puff INHALATION BID Patient Comments: INHALE 2 PUFFS BY MOUTH TWICE DAILY Eliquis 5 mg Tablet See Rx Instructions .ROUTE .COMPLEX 30 Days Qty: 72 0RF Rx Instructions: 2 tabs (10mg) BID for 6 days followed by 1 tab (5mg) BID thereafter prednisone 10 mg tablet See Rx Instructions .ROUTE .COMPLEX 21 Days Qty: 65 0RF Rx Instructions: 3-week taper. 60 mg for 3 days, 50 mg for 3 days, 40 mg for 3 days, 30 mg for 3 days, 20 mg for 3 days, 10 mg for 3 days, 5 mg for 3 days. hydroxyzine pamoate 50 mg capsule 50 mg PO Q8H PRN (Reason: itching) 30 Days Qty: 90 0RF cephalexin 500 mg capsule 500 mg PO BID 10 Days Qty: 20 0RF Referrals Follow up/Referrals: Eris Kenyon [Primary Care Provider] - See instructions Print Language Print Language: Vietnamese Discharge ED Provider: Diamond Berger General Adult HPI General Chief complaint: PAIN Stated complaint: rash, chills, bilateral leg swelling Time Seen by Provider: 08/06/24 18:41 Mode of Arrival: Ambulatory Source of Information: Patient Limitations: No Limitations Description of Symptoms (Recalled from ER Triage Doc. by RN): Patient presents to ED with rash covering her whole body. Bilateral legs are swollen and seeping fluid. Patient reports this has been going on for 2 years but it will flare up and be worse at times. History of Present Illness HPI narrative: This is a 63-year-old female who presents to the ED with rash that is covering her entire body head to toe. She has had this rash she tells me for 3 years since she has had her COVID-vaccine. She reports bilateral legs that are swelling from her scratching them so much they are seeping yellow fluid. She says she has been awake for 3 nights due to the itching. She has no fevers but her skin is very warm. She has a registered nurse obstetrics appointment on Friday and she has been trying to make it but she has been unable to do that due to the itching. Friday will be the fifth doctor she will have seen for this besides the ER trips she has made. She has taken hydroxyzine several times to try to help. She has done all the [id number] ointments and treatments including Benadryl. She has tried steroid she has tried everything her primary care has offered and nothing will help. Related Data Home Medications ?Medication ?Instructions ?Recorded ?Confirmed amlodipine 5 mg tablet 5 mg PO DAILY 09/16/23 05/25/24 famotidine 20 mg tablet 20 mg PO BID 09/16/23 05/25/24 hydrochlorothiazide 12.5 mg capsule 12.5 mg PO DAILY 09/16/23 05/25/24 montelukast 10 mg tablet 10 mg PO HS 09/16/23 05/26/24 budesonide-formoterol HFA 160 2 puff inhalation BID 05/26/24 05/26/24 mcg-4.5 mcg/actuation aerosol inhaler (Breyna) hydroxyzine HCl 25 mg tablet 25 mg PO HS 05/26/24 05/26/24 loratadine 10 mg tablet 10 mg PO DAILY 05/26/24 05/26/24 Previous Rx's ?Medication ?Instructions ?Recorded apixaban 5 mg tablet (Eliquis) See Rx Instructions .Route 05/26/24 .COMPLEX 30 days #72 tabs prednisone 10 mg tablet See Rx Instructions .Route 05/26/24 .COMPLEX 21 days #65 tabs cephalexin 500 mg capsule 500 mg PO Q6H 10 days #40 caps 06/19/24 cephalexin 500 mg capsule 500 mg PO BID 10 days #20 caps 07/23/24 hydroxyzine pamoate 50 mg capsule 50 mg PO Q8H PRN itching 30 days 07/23/24 #90 caps Allergies Allergy/AdvReac Type Severity Reaction Status Date / Time acetaminophen [From Percocet] Allergy Severe Rash Verified 09/16/23 13:37 oxycodone [From Percocet] Allergy Severe Rash Verified 09/16/23 13:37 COVID VACCINE Allergy Rash Uncoded 06/19/24 18:47 PFSH PFSH Disclaimer: The information contained in this section may have been updated after the patient was seen, as this information can be updated by other users. Medical History (Updated 07/23/24 @ 21:08 by Kierra Parks (ED), SENIOR DESIGNER/ART DIRECTOR) Asthma Surgical History H/O: hysterectomy Family History Other Asthma Eczema Hyperlipidemia Hypertension Social History (Updated 05/25/24 @ 22:57 by Beverley Vu RN) Smoking Status: Current every day smoker alcohol intake: never current occupational status: unemployed Travel in the last 8 weeks: None Other Medical History Have you received the Flu Vaccine for this season: No Have you received the Pneumonia Vaccine: No ROS Obtained: Yes Systems reviewed as appropriate & no additional complaints except as documented Constitutional Constitutional: Reports as per HPI Physical Exam General General appearance: alert, anxious and in distress Comment: Due to entire body rash and itching Head Head exam: atraumatic and normocephalic Eye Eye exam: Present normal appearance, PERRL and EOMI ENT ENT exam: Present normal exam, normal oropharynx and mucous membranes moist Neck Neck exam: Present normal inspection, full ROM and trachea midline Chest Chest inspection: Present normal inspection Respiratory Respiratory exam: Present normal lung sounds bilaterally Cardiovascular Cardiovascular exam: Present regular rate, normal rhythm, normal heart sounds, +S1 and +S2 Abdominal Exam Abdominal exam: Present soft and normal bowel sounds Extremities Exam Extremities exam: Present full ROM, normal capillary refill, joint swelling and other (Rash and erythema covering body, hive-like appearance) Neurological Exam Neurological exam: Present alert, oriented X3 and normal gait Psychiatric Psychiatric exam: Present agitated and anxious Skin Skin exam: Present warm, dry, rash, erythema and other (Erythematous, hive-like rash covering body. Worse on bilateral lower extremities due to scratching. Sleeping brownish-yellow on legs and ankles) Expanded Skin Exam Distribution: generalized, head, chest, back, abdomen, LUE, LLE, RUE and RLE Description: Present erythematous, swelling, purpuric, urticarial, crusting and discharge Medical Decision Making Medical Records Screening: Per USPSTF and CDC recommendations, given the prevalence of disease in our region, it is our hospital?s policy to screen for HIV and viral Hepatitis for all patients aged 18 and over and those with ongoing risk factors. Prabhakar Inquiry Pt receiving controlled substance: No Prabhakar was queried for this patient: No Vital Signs: 08/06/24 18:29 Temperature 98.0 F Temperature Source Oral Pulse Rate [Right Brachial] 117 H Respiratory Rate 20 Blood Pressure [Right Arm] 152/85 H Blood Pressure Mean [Right Arm] 107 Blood Pressure Source [Right Arm] Automatic Cuff Blood Pressure Position [Right Arm] Supine 02 Sat by Pulse Oximetry 97 Oxygen Delivery Method Room Air Lab Data Lab Results 08/06/24 18:52: WBC 11.4 H, RBC 4.48, Hgb 14.2, Hct 41.3, MCV 92.4, MCH 31.6 H, MCHC 34.2, RDW 13.8, Plt Count 364, MPV 6.9 L, Neut % (Auto) 70.4, Lymph % (Auto) 12.7, [place] % (Auto) 6.2, Eos % (Auto) 10.4, Baso % (Auto) 0.3, Neut # (Auto) 8.1 H, Lymph # (Auto) 1.5, [place] # (Auto) 0.7, Eos # (Auto) 1.2 H, Baso # (Auto) 0.0, ESR 24, Sodium 132 L, Potassium 2.9 L*, Chloride 96 L, Carbon Dioxide 27, Anion Gap 11.9, BUN 16, Creatinine 1.00, Estimated Creat Clear 60, E stimated GFR 56 L, Est GFR ( Amer) 68, Glucose 115 H, Calcium 8.9, Total Bilirubin 1.2, AST 34, ALT 34, Alkaline Phosphatase 106, Total Protein 7.1, Albumin 4.1, Globulin 3.0, Albumin/Globulin Ratio 1.4 08/06/24 18:52 08/06/24 18:52 Orders (Tests/Meds): ED MEDICATIONS Generic Name Dose Route Start Last Admin Trade Name Freq PRN Reason Stop Dose Admin Sodium Chloride 8 ml 08/06/24 18:42 Sodium Chloride 0.9% 10ml Vial IV 09/05/24 18:41 NEEDED PRN dilute pepcid Sodium Chloride 10 ml 08/06/24 19:41 Sodium Chloride 0.9% 10ml Vial IV 09/05/24 19:40 NEEDED PRN to Dilute Lorazepam inj Discontinued Medications Generic Name Dose Route Start Last Admin Trade Name Freq PRN Reason Stop Dose Admin Diphenhydramine HCl 50 mg 08/06/24 18:42 08/06/24 18:56 Diphenhydramine 50mg/Ml Vial IV 08/06/24 18:43 50 mg ONCE ONE Administration Famotidine 20 mg 08/06/24 18:42 08/06/24 18:56 Famotidine 20mg/2ml Vial IV 08/06/24 18:43 20 mg ONCE ONE Administration Lactated Ringer's 1,000 mls @ 999 mls/hr 08/06/24 18:50 08/06/24 18:56 Lactated Ringer's 1000 Ml Bag IV 08/06/24 19:50 999 mls/hr .Q1H1M ONE Administration Lactated Ringer's 1,000 mls @ 999 mls/hr 08/06/24 20:04 08/06/24 20:22 Lactated Ringer's 1000 Ml Bag IV 08/06/24 21:04 999 mls/hr .Q1H1M ONE Administration Lorazepam 1 mg 08/06/24 19:41 08/06/24 19:58 Lorazepam 2mg/Ml Vial IV 08/06/24 19:42 1 mg ONCE ONE Administration Methylprednisolone Sodium Succinate 125 mg 08/06/24 18:42 08/06/24 18:56 Methylprednisolone Sod Succ 125mg Vial IV 08/06/24 18:43 125 mg ONCE ONE Administration Potassium Chloride 60 meq 08/06/24 19:52 10/04/24 19:59 Potassium Chloride 20meq Tab PO 08/06/24 19:53 60 meq ONCE ONE Administration ORDERS Category Date Time Status CBC w/Auto Diff [Complete Blood Count Auto Diff] Stat Lab 08/06/24 18:52 Completed Comprehensive Metabolic Panel Stat Lab 08/06/24 18:52 Completed ESR [Erythrocyte Sedimentation Rate] Routine Lab 08/06/24 18:52 Completed HIV (1&2) Antibody Rapid Stat Lab 08/06/24 18:52 Received Hep C Ab with Reflex to RNA Stat Lab 08/06/24 18:52 Received Medical Decision Narrative: Insert review patient is a 63-year-old female presenting to the emergency department for evaluation of hive-like rash that is diffuse over her body and.. Patient is hemodynamically stable and nontoxic-appearing upon arrival, afebrile. Differential diagnosis includes allergic reaction, COVID vaccine related reaction, anxiety, autoimmune disorder, and erythrodermic psoriasis, among others. Workup will be conducted with hematologic labs including sed rate and basic labs, no specific imaging acquired. Initial inventions include crystalloid bolus, Benadryl, Solu-Medrol, famotidine. Initial workup reviewed by me with white count of 11. 2 and a potassium of 2.9. Discussed with Dr. Berger who also looked at patient and evaluated her. We are giving her 2 L of LR and 60 mill equivalents of potassium to replace the potassium. Also gave Solu- Medrol, Benadryl, famotidine and some Ativan to help with the itching. Patient will be reevaluated by dermatology on Friday which is her appointment. Patient is not emergent as we explained to her that there is not an emergent condition but we are treating symptoms and she has early follow-up on Friday. This rash has been present for 2 and half to 3 years since she had the COVID-vaccine. Will send home on potassium once the second liter of LR has infused. Critical Care Critical Care Time Critical Care Time: No
[2024-08-06] MEDS: FAMOTIDINE 20MG/2ML VIAL 20 MG IV (18:56)
[2024-08-06] MEDS: LACTATED RINGERS 1000ML 1,000 ML 999 ML IV ×2 (18:56→20:22)
[2024-08-06] MEDS: METHYLPREDNISOLONE SOD SUCC 125MG VIAL 125 MG IV (18:56)
[2024-08-06] MEDS: diphenhydrAMINE 50MG/ML VIAL 50 MG IV (18:56)
[2024-08-06 19:01] LABS: Basophils % 0.3 % (0.1-2.0); Eosinophils # 1.2 K/mm3 (0.0-0.4); Eosinophils % 10.4 % (0.1-12.0); Hematocrit 41.3 % (37.0-47.0); Hemoglobin 14.2 g/dL (12.2-16.2); Lymphocytes # 1.5 K/mm3 (0.7-4.5); Lymphocytes % 12.7 % (10-50); Mean Corpuscular HGB Conc 34.2 g/dL (31.8-35.4); Mean Corpuscular Hemoglobin 31.6 pg (27.0-31.2); Mean Corpuscular Volume 92.4 fl (81-99); Mean Platelet Volume 6.9 fl (7.4-10.4); Monocytes # 0.7 K/mm3 (0.1-1.0); Monocytes % 6.2 % (1.7-9.3); Neutrophils # 8.1 K/mm3 (1.8-7.8); Neutrophils % 70.4 % (37.0-80.0); Platelet Count 364 K/mm3 (142-424); Red Blood Count 4.48 M/mm3 (4.20-5.40); Red Cell Distribution Width 13.8 % (11.5-17.5); White Blood Count 11.4 K/mm3 (4.8-10.8)
[2024-08-06 19:42] LABS: Chloride 96 mmol/L (98-107); Erythrocyte Sedimentation Rate 24 mm/hr (0-30)
[2024-08-06 19:43] LABS: Albumin Level 4.1 g/dl (3.5-5.0); Sodium 132 mmol/L (136-145)
[2024-08-06 19:45] LABS: Blood Urea Nitrogen 16 mg/dl (7-17); Creatinine Clearance Estimated 60 mL/min (50-200); Estimated Glomerular Filt Rate 56 ml/min (>60); GFR (African American) 68 ML/MIN (>60)
[2024-08-06 19:46] LABS: Alanine Aminotransferase 34 U/L (12-78); Albumin/Globulin Ratio 1.4 (1.1-1.8); Alkaline Phosphatase 106 U/L (38-126); Anion Gap 11.9 mEq/L (5-15); Aspartate Amino Transferase 34 U/L (14-36); Bilirubin,Total 1.2 mg/dl (0.2-1.3); Calcium 8.9 mg/dl (8.4-10.2); Carbon Dioxide 27 mmol/L (22.0-30.0); Glucose 115 mg/dl (74-100); Total Protein,Serum 7.1 g/dl (6.3-8.2)
[2024-08-06 19:50] LABS: Potassium 2.9 mmoL/L (3.5-5.1)
[2024-08-06] MEDS: LORazepam 2MG/ML VIAL 1 MG IV (19:58)
[2024-08-06] MEDS: POTASSIUM CHLORIDE 20MEQ TAB 60 MEQ PO (19:59)
[2024-08-06 21:30] VITALS: BP 132/78; PULSE 100; RESP 16; TEMP 36.8; O2SAT 98
[2024-08-06 23:06] LABS: HIV (1&2) Antibody Rapid NONREACTIVE (NONREACTIVE)
[2024-08-08 10:09] LABS: HCV Ab Non Reactive (Non Reactive)
== END 2024-08-06 21:38 | disposition home or self-care (01) ==
PROVIDERS: Nurse Practitioner; Emergency Provider Student in an Organized Health Care Education/Training Program; PCP Pediatrics
DX: R21 Rash and other nonspecific skin eruption (principal); R60.0 Localized edema
CPT/HCPCS: 80053; 85025; 85651; 86803; 87389; 96361; 96374; 96375; 99284; J1200; J2060; J2919; J7120; S0028

== ENCOUNTER 2024-08-21 09:55 | Emergency (ER) | payer BC, SELFPAY ==
[2024-08-21 09:56] VITALS: BP 132/86; PULSE 99; RESP 18; TEMP 36.6; O2SAT 100; BMI 25.4
[2024-08-21 10:03] VITALS: BP 118/101; PULSE 97; O2SAT 100
[2024-08-21 10:04] VITALS: BP 132/86; PULSE 91; O2SAT 100
--- NOTE | 2024-08-21 10:23 | PC.NURSE ---
dr enamorado at bedside
[2024-08-21 10:32] VITALS: BP 123/79; PULSE 95; O2SAT 100
--- NOTE | 2024-08-21 10:56 | ED_ITS ---
Discharge Plan Disposition Patient Disposition: Home, Self-Care Prescriptions Prescriptions: New prednisone 20 mg tablet 60 mg PO DAILY 7 Days Qty: 21 0RF triamcinolone acetonide 0.5 % ointment 1 applic topical BID 14 Days Qty: 430 0RF hydroxyzine pamoate [Vistaril] 25 mg capsule 25 mg PO Q8H PRN (Reason: itching) 7 Days Qty: 21 0RF No Action montelukast 10 mg tablet 10 mg PO HS Patient Comments: TAKE 1 TABLET BY MOUTH ONCE DAILY AT BEDTIME hydrochlorothiazide 12.5 mg capsule 12.5 mg PO DAILY Patient Comments: TAKE 1 CAPSULE BY MOUTH ONCE DAILY famotidine 20 mg tablet 20 mg PO BID Patient Comments: TAKE 1 TABLET BY MOUTH TWICE DAILY amlodipine 5 mg tablet 5 mg PO DAILY Patient Comments: TAKE 1 TABLET BY MOUTH ONCE DAILY cephalexin 500 mg capsule 500 mg PO Q6H 10 Days Qty: 40 0RF hydroxyzine HCl 25 mg tablet 25 mg PO HS Patient Comments: TAKE 1 TABLET BY MOUTH NIGHTLY loratadine 10 mg tablet 10 mg PO DAILY Patient Comments: TAKE 1 TABLET BY MOUTH ONCE DAILY budesonide-formoterol [Breyna] 160-4.5 mcg/actuation HFA aerosol inhaler 2 puff INHALATION BID Patient Comments: INHALE 2 PUFFS BY MOUTH TWICE DAILY Eliquis 5 mg Tablet See Rx Instructions .ROUTE .COMPLEX 30 Days Qty: 72 0RF Rx Instructions: 2 tabs (10mg) BID for 6 days followed by 1 tab (5mg) BID thereafter prednisone 10 mg tablet See Rx Instructions .ROUTE .COMPLEX 21 Days Qty: 65 0RF Rx Instructions: 3-week taper. 60 mg for 3 days, 50 mg for 3 days, 40 mg for 3 days, 30 mg for 3 days, 20 mg for 3 days, 10 mg for 3 days, 5 mg for 3 days. hydroxyzine pamoate 50 mg capsule 50 mg PO Q8H PRN (Reason: itching) 30 Days Qty: 90 0RF cephalexin 500 mg capsule 500 mg PO BID 10 Days Qty: 20 0RF potassium chloride 20 mEq tablet extended release 20 meq PO BID 5 Days Qty: 10 0RF Referrals Follow up/Referrals: Eris Kenyon [Primary Care Provider] - See instructions Activity Restrictions/Add. Instructions Additional Instructions/Restrictions: You have severe erythrodermic atopic dermatitis as discussed. You have been prescribed topical steroids and systemic steroids as discussed. Please continue to follow-up with your air pollution control engineer and be started on Dupixent as previously instructed. In the meantime wound management as discussed on your open wounds please make sure you are placing topical antibiotic ointment and on the areas that are not open you may place triamcinolone twice a day. On your legs I recommend that you apply tight compression after the ointment has been administered and elevate your legs. I also recommend you take at least a week off of work to allow yourself to heal and be on your legs less until you are started on this medication to help with the underlying inflammatory process which is exacerbating the swelling in your extremities. Clinical Impressions Clinical Impression: Atopic dermatitis, mild Stand Alone Forms Stand Alone Forms: Work/School Release Instructions Patient Instructions: DI for Skin Abscess Print Language Print Language: [place] Discharge ED Provider: Diamond Berger General Adult HPI General Chief complaint: Skin/Abscess/Foreign Body Stated complaint: Pain and swelling in both legs Time Seen by Provider: 08/21/24 10:21 Mode of Arrival: Ambulatory Source of Information: Patient Limitations: No Limitations Description of Symptoms (Recalled from ER Triage Doc. by RN): pt reports increased bilateral lower extremity edema History of Present Illness HPI narrative: Patient is a 63-year-old presented today with worsening lower extremity edema pain in the she has been dealing with a skin condition for the last 2-1/2 years and recently went to the air pollution control engineer for the first time and had a biopsy which confirmed the diagnosis of erythrodermic atopic dermatitis. She has been told to follow-up on Friday and will be started on Dupixent for refractory eczema. However in the meantime she has ongoing inflammatory changes in her lower extremities she has a job where she is on her feet extensively and she has lower extremity swelling and some wounds and weeping that are causing symptomatic problems. She has not been on any steroids or medication other than Vistaril. She is here primarily for the extreme discomfort that she is feeling. Related Data Home Medications ?Medication ?Instructions ?Recorded ?Confirmed amlodipine 5 mg tablet 5 mg PO DAILY 09/16/23 05/25/24 famotidine 20 mg tablet 20 mg PO BID 09/16/23 05/25/24 hydrochlorothiazide 12.5 mg capsule 12.5 mg PO DAILY 09/16/23 05/25/24 montelukast 10 mg tablet 10 mg PO HS 09/16/23 05/26/24 budesonide-formoterol HFA 160 2 puff inhalation BID 05/26/24 05/26/24 mcg-4.5 mcg/actuation aerosol inhaler (Breyna) hydroxyzine HCl 25 mg tablet 25 mg PO HS 05/26/24 05/26/24 loratadine 10 mg tablet 10 mg PO DAILY 05/26/24 05/26/24 Previous Rx's ?Medication ?Instructions ?Recorded apixaban 5 mg tablet (Eliquis) See Rx Instructions .Route 05/26/24 .COMPLEX 30 days #72 tabs prednisone 10 mg tablet See Rx Instructions .Route 05/26/24 .COMPLEX 21 days #65 tabs cephalexin 500 mg capsule 500 mg PO Q6H 10 days #40 caps 06/19/24 cephalexin 500 mg capsule 500 mg PO BID 10 days #20 caps 07/23/24 hydroxyzine pamoate 50 mg capsule 50 mg PO Q8H PRN itching 30 days 07/23/24 #90 caps potassium chloride 20 mEq 20 meq PO BID 5 days #10 tabs 08/06/24 tablet,extended release hydroxyzine pamoate 25 mg capsule 25 mg PO Q8H PRN itching 7 days 08/21/24 (Vistaril) #21 caps prednisone 20 mg tablet 60 mg (3 x 20 mg) PO DAILY 7 days 08/21/24 #21 tabs triamcinolone acetonide 0.5 % 1 applic topical BID 14 days #430 08/21/24 topical ointment grams Allergies Allergy/AdvReac Type Severity Reaction Status Date / Time acetaminophen [From Percocet] Allergy Severe Rash Verified 09/16/23 13:37 oxycodone [From Percocet] Allergy Severe Rash Verified 09/16/23 13:37 COVID VACCINE Allergy Rash Uncoded 06/19/24 18:47 PFS PFS Disclaimer: The information contained in this section may have been updated after the patient was seen, as this information can be updated by other users. Medical History (Updated 08/21/24 @ 10:54 by Diamond Berger MD) Asthma Surgical History H/O: hysterectomy Family History Other Asthma Eczema Hyperlipidemia Hypertension Social History (Updated 05/25/24 @ 22:57 by Beverley Vu RN) Smoking Status: Current every day smoker alcohol intake: never current occupational status: unemployed Travel in the last 8 weeks: None Other Medical History Have you received the Flu Vaccine for this season: No Have you received the Pneumonia Vaccine: No ROS Obtained: Yes All systems reviewed & no additional complaints except as documented Physical Exam General General appearance: alert Respiratory Respiratory exam: Present normal lung sounds bilaterally Cardiovascular Cardiovascular exam: Present regular rate Neurological Exam Neurological exam: Present alert and oriented X3 Skin Skin exam: Present other (Severe erythrodermic rash across her entire body in the lower extremities there is some skin cracking and some serosanguineous drainage with some open wounds and severe edema) Medical Decision Making Medical Records Screening: Per USPSTF and CDC recommendations, given the prevalence of disease in our [facility], it is our hospital?s policy to screen for HIV and viral Hepatitis for all patients aged 18 and over and those with ongoing risk factors. Prabhakar Inquiry Pt receiving controlled substance: No Vital Signs: 08/21/24 09:56 08/21/24 10:03 08/21/24 10:04 Temperature 97.9 F Temperature Source Oral Pulse Rate 97 H 91 H Pulse Rate [Radial] 99 H Respiratory Rate 18 Blood Pressure 118/101 H 132/86 Blood Pressure [Right Arm] 132/86 Blood Pressure Mean 106 96 Blood Pressure Mean [Right Arm] 101 Blood Pressure Source [Right Arm] Automatic Cuff Blood Pressure Position [Right Arm] Sitting 02 Sat by Pulse Oximetry 100 100 100 Oxygen Delivery Method Room Air Room Air 08/21/24 10:32 Temperature Temperature Source Pulse Rate 95 H Pulse Rate [Radial] Respiratory Rate Blood Pressure 123/79 Blood Pressure [Right Arm] Blood Pressure Mean 87 Blood Pressure Mean [Right Arm] Blood Pressure Source [Right Arm] Blood Pressure Position [Right Arm] 02 Sat by Pulse Oximetry 100 Oxygen Delivery Method Room Air Orders (Tests/Meds): ED MEDICATIONS Generic Name Dose Route Start Last Admin Trade Name Freq PRN Reason Stop Dose Admin Neomycin/Polymyxin/Bacitracin 0 gm 08/21/24 11:00 Pvvjzhll-Nmfqslifq-Ykzbq Oint 15gm Tube TP 08/21/24 11:01 DIRECTED ONE Triamcinolone Acetonide 0 gm 08/21/24 11:00 Triamcinolone Acetonide Cream 80gm Tube TP 08/21/24 11:01 DIRECTED ONE ORDERS Category Date Time Status HIV (1&2) Antibody Rapid Stat Lab 08/21/24 10:12 Received Hep C Ab with Reflex to RNA Stat Lab 08/21/24 10:12 Received Medical Decision Narrative: Patient with above history and physical consistent with severe erythrodermic atopic dermatitis. Her main issues today are lower extremity swelling secondary to the inflammatory changes and edema in the lower extremities. Will restart her on a burst of steroids as well as some topical steroids and treat her open wounds with topical antibiotic ointments in addition to compression dressings. However she is about to start the more appropriate medication Dupixent for more definitive management which should be beneficial in the setting of topical and systemic steroids as well. At this point I do not suspect that she has a superimposed infection or other secondary cause of her edema so will not work her up further from that standpoint and will advise in addition to wound management and symptomatic management as prescribed that she keep her appointment with dermatology on Friday. Critical Care Critical Care Time Critical Care Time: No
[2024-08-21 11:14] VITALS: BP 123/79; PULSE 95; RESP 13; TEMP 36.7
[2024-08-21] MEDS: TRIAMCINOLONE ACETONIDE TP (11:15)
[2024-08-21] MEDS: NEOMYCIN-POLYMYXIN-BACIT OINT 15GM TUBE TP (11:15)
[2024-08-21 11:41] LABS: HIV (1&2) Antibody Rapid NONREACTIVE (NONREACTIVE)
[2024-08-24 05:16] LABS: HCV Ab Non Reactive (Non Reactive)
== END 2024-08-21 11:16 | disposition home or self-care (01) ==
PROVIDERS: Emergency Provider Student in an Organized Health Care Education/Training Program; PCP Pediatrics
DX: L20.9 Atopic dermatitis, unspecified (principal); M79.661 Pain in right lower leg; M79.662 Pain in left lower leg
CPT/HCPCS: 86803; 87389; 99282

== ENCOUNTER 2025-01-23 14:14 | Outpatient (CLI) | payer BC, SELFPAY ==
--- NOTE | 2025-01-23 14:19 | XR_ITS ---
PROCEDURE INFORMATION: Exam: XR Chest Exam date and time: 01/23/2025 2:11 PM Age: 64 years old Clinical indication: Cough TECHNIQUE: Imaging protocol: Radiologic exam of the chest. Views: 2 views. COMPARISON: CT ANGIO CHEST 05/25/2024 7:51 PM FINDINGS: Lungs: Unremarkable. No consolidation. Pleural spaces: Unremarkable. No pleural effusion. No pneumothorax. Heart/Mediastinum: Unremarkable. No cardiomegaly. Bones/joints: Midthoracic compression fractures of unknown age. IMPRESSION: No acute findings.
== END 2025-01-23 23:59 | disposition home or self-care (01) ==
LOC: RAD 14:17
PROVIDERS: PCP Pediatrics; Visit Provider Student in an Organized Health Care Education/Training Program
DX: R05.9 Cough, unspecified (principal)
CPT/HCPCS: 71046

== ENCOUNTER 2025-01-24 04:14 | Emergency (ER) | payer BC, SELFPAY ==
--- NOTE | 2025-01-24 04:22 | XR_ITS ---
PROCEDURE INFORMATION: Exam: XR Chest Exam date and time: 01/24/2025 4:24 AM Age: 64 years old Clinical indication: Other: Blood streaked sputum TECHNIQUE: Imaging protocol: Radiologic exam of the chest. Views: 2 views. COMPARISON: CR XR CHEST 2V 01/23/2025 2:11 PM FINDINGS: Lungs: Chronic interstitial opacities. No focal consolidation. Pleural spaces: Unremarkable. No pleural effusion. No pneumothorax. Heart/Mediastinum: Unremarkable. No cardiomegaly. Bones/joints: Unremarkable. IMPRESSION: No acute disease. Chronic interstitial lung disease.
[2025-01-24 04:25] VITALS: BP 139/87; PULSE 97; RESP 20; TEMP 36.6; O2SAT 95; BMI 25.4
--- NOTE | 2025-01-24 04:25 | HMH.EDGENADL ---
Discharge Plan Disposition Patient Disposition: Home, Self-Care Condition: Good Prescriptions Prescriptions: No Action hydrochlorothiazide 12.5 mg capsule 12.5 mg PO DAILY Patient Comments: TAKE 1 CAPSULE BY MOUTH ONCE DAILY famotidine 20 mg tablet 20 mg PO BID Patient Comments: TAKE 1 TABLET BY MOUTH TWICE DAILY amlodipine 5 mg tablet 5 mg PO DAILY Patient Comments: TAKE 1 TABLET BY MOUTH ONCE DAILY cetirizine 10 mg tablet PO Patient Comments: TAKE 1 TABLET BY MOUTH ONCE DAILY methylprednisolone 4 mg tablets,dose pack See Rx Instructions PO PER PKG DIR Qty: 21 0RF Rx Instructions: PO PER PKG DIR azithromycin [Zithromax Z-Leo] 250 mg tablet See Rx Instructions PO .COMPLEX Qty: 6 0RF Rx Instructions: For 250 mg dose pack: take 500 mg today (day 1), then 250 mg for 4 days (days 2-5) PO benzonatate 100 mg capsule 100 mg PO BID PRN (Reason: cough) Qty: 20 0RF hydroxyzine HCl 25 mg tablet 25 mg PO HS Patient Comments: TAKE 1 TABLET BY MOUTH NIGHTLY budesonide-formoterol [Breyna] 160-4.5 mcg/actuation HFA aerosol inhaler 2 puff INHALATION BID Patient Comments: INHALE 2 PUFFS BY MOUTH TWICE DAILY Eliquis 5 mg Tablet See Rx Instructions .ROUTE .COMPLEX 30 Days Qty: 72 0RF Rx Instructions: 2 tabs (10mg) BID for 6 days followed by 1 tab (5mg) BID thereafter Referrals Follow up/Referrals: Eris Kenyon [Primary Care Provider] - See instructions Activity Restrictions/Add. Instructions Additional Instructions/Restrictions: You were evaluated in the ER and are appropriate for discharge at this time. Continue taking all your home medications as prescribed including the azithromycin. Make an appointment with your primary care doctor for reevaluation in 1 to 2 days. Return to the ER with any new, worsening, or otherwise concerning symptoms. Clinical Impressions Clinical Impression: Blood-streaked sputum, Bronchitis Print Language Print Language: [place] Discharge ED Provider: Vitaliy Marquez General Adult HPI General Chief complaint: Upper Respiratory Infection Stated complaint: Coughing up blood Time Seen by Provider: 01/24/25 04:14 History of Present Illness HPI narrative: 64-year-old female presents to the ER with complaints of blood-streaked sputum. Patient reports she has been sick for the last week and saw Kiraa Coughlin yesterday for chest x-ray and was told she probably had bronchitis and was started on azithromycin. Patient started coughing up blood in the last few hours. She shows me the tissues which demonstrate blood-streaked sputum. Patient is on Eliquis for PE which she had last summer. She also has a history of hypertension, erythrodermic psoriasis, eosinophilia. She is not having fevers or difficulty breathing, no chest pain, vomiting, diarrhea, or other associated symptoms. Related Data Home Medications ?Medication ?Instructions ?Recorded ?Confirmed amlodipine 5 mg tablet 5 mg PO DAILY 09/16/23 01/23/25 famotidine 20 mg tablet 20 mg PO BID 09/16/23 01/23/25 hydrochlorothiazide 12.5 mg capsule 12.5 mg PO DAILY 09/16/23 01/23/25 budesonide-formoterol HFA 160 2 puff inhalation BID 05/26/24 01/23/25 mcg-4.5 mcg/actuation aerosol inhaler (Breyna) hydroxyzine HCl 25 mg tablet 25 mg PO HS 05/26/24 01/23/25 cetirizine 10 mg tablet mg PO 01/23/25 01/23/25 Previous Rx's ?Medication ?Instructions ?Recorded apixaban 5 mg tablet (Eliquis) See Rx Instructions .Route 05/26/24 .COMPLEX 30 days #72 tabs azithromycin 250 mg tablet See Rx Instructions PO .COMPLEX #6 01/23/25 (Zithromax Z-Leo) tabs benzonatate 100 mg capsule 100 mg PO BID PRN cough #20 caps 01/23/25 methylprednisolone 4 mg tablets in See Rx Instructions PO PER PKG DIR 01/23/25 a dose pack #21 tabs Allergies Allergy/AdvReac Type Severity Reaction Status Date / Time acetaminophen (From Percocet) Allergy Severe Rash Verified 01/23/25 13:37 oxycodone (From Percocet) Allergy Severe Rash Verified 01/23/25 13:37 COVID VACCINE Allergy Rash Uncoded 01/23/25 13:37 [facility] Disclaimer: The information contained in this section may have been updated after the patient was seen, as this information can be updated by other users. Medical History History of blood clots Dermatitis Asthma Surgical History H/O: hysterectomy Family History Other Asthma Eczema Hyperlipidemia Hypertension Social History Smoking Status: Current every day smoker alcohol intake: never current occupational status: unemployed Travel in the last 8 weeks: None Have you lived/traveled outside [place] in past 30 days?: No Contact w/someone who lives/traveled outside US past 30 days?: No Exposure to someone with infectious disease in past 14 days?: No Do you have a fever (greater than 100.4 F or 38 C)?: No Have you tested positive for COVID-19: No Exposed to someone with COVID-19 in past 14 days?: No Do you have a sore throat?: No Do you have a cough?: Yes Do you have any weakness?: No Do you have any diarrhea?: No Are you experiencing any unusual bleeding?: No Do you have any muscle aches/pain?: No Do you have any abdominal pain?: No Are you experiencing loss of taste or smell?: No Other Medical History Have you received the Flu Vaccine for this season: No Have you received the Pneumonia Vaccine: No ROS Obtained: Yes Systems reviewed as appropriate & no additional complaints except as documented Per HPI Physical Exam General General appearance: alert and in no apparent distress Head Head exam: atraumatic and normocephalic Eye Eye exam: Present PERRL and EOMI ENT ENT exam: Present mucous membranes moist Neck Neck exam: Present normal inspection and full ROM Chest Chest inspection: Present symmetric chest wall rise Respiratory Respiratory exam: Present normal lung sounds bilaterally and wheezes (Mild and expiratory wheeze in the left lung); Absent respiratory distress or stridor Cardiovascular Cardiovascular exam: Present regular rate and normal rhythm Abdominal Exam Abdominal exam: Present soft; Absent distention or tenderness Extremities Exam Extremities exam: Present full ROM; Absent edema or calf tenderness Neurological Exam Neurological exam: Present alert and oriented X3; Absent motor sensory deficit Psychiatric Psychiatric exam: Present normal affect and normal mood Skin Skin exam: Present warm and dry Medical Decision Making Medical Records Medical records reviewed: Yes I reviewed the patient's medical records. Screening: Per USPSTF and CDC recommendations, given the prevalence of disease in our region, it is our hospital?s policy to screen for HIV and viral Hepatitis for all patients aged 18 and over and those with ongoing risk factors. MR Comment: Chest x-ray from yesterday was reviewed by me and does not demonstrate lobar infiltrate, patient has evidence of asthma and possibly bronchitis on the x-ray but no specific infiltrate. Prabhakar Inquiry Pt receiving controlled substance: No Vital Signs: 01/24/25 04:25 01/24/25 05:08 Temperature 97.9 F 98.6 F Temperature Source Oral Oral Pulse Rate 86 Pulse Rate [Right] 97 H Respiratory Rate 20 20 Blood Pressure 128/78 Blood Pressure [Right Arm] 139/87 Blood Pressure Mean [Right Arm] 104 Blood Pressure Source Automatic Cuff Blood Pressure Position Sitting 02 Sat by Pulse Oximetry 95 Oxygen Delivery Method Room Air Room Air Lab Data Lab Results 01/24/25 04:28: WBC 8.0, RBC 4.29, Hgb 13.2, Hct 38.9, MCV 90.7, MCH 30.8, MCHC 33.9, RDW 12.6, Plt Count 387, MPV 9.0, Neut % (Auto) 82.7 H, Lymph % (Auto) 13.8, Dillon % (Auto) 2.1, Eos % (Auto) 0.0 L, Baso % (Auto) 0.1, Neut # (Auto) 6.6, Lymph # (Auto) 1.1, Dillon # (Auto) 0.2, Eos # (Auto) 0.0, Baso # (Auto) 0.0, PT 10.3, INR 0.91, D-Dimer 0.46, Sodium 138, Potassium 3.7, Chloride 105, Carbon Dioxide 25, Anion Gap 11.7, BUN 13, Creatinine 0.70, Estimated Creat Clear 59, Estimated GFR 84, Est GFR ( Amer) 102, Glucose 144 H, Calcium 9.7, Total Bilirubin 0.7, AST 34, ALT 29, Alkaline Phosphatase 110, Total Protein 7.8, Albumin 4.7, Globulin 3.1, Albumin/Globulin Ratio 1.5 01/24/25 04:28 01/24/25 04:28 Orders (Tests/Meds): ED MEDICATIONS Discontinued Medications Generic Name Dose Route Start Last Admin Trade Name Freq PRN Reason Stop Dose Admin Albuterol/Ipratropium 3 ml 01/24/25 04:32 01/24/25 04:43 Ipratropium/Albuterol 3 Ml Neb 01/24/25 04:33 3 ml ONCE ONE Administration Lidocaine HCl 5 ml 01/24/25 04:28 01/24/25 04:31 Lidocaine 2% 5ml Pf Vial 01/24/25 04:29 5 ml ONCE ONE Administration ORDERS Category Date Time Status CXR 2 view (NOT portable) [XR chest 2V] Stat Exams 01/24/25 04:22 Completed CBC w/Auto Diff [Complete Blood Count Auto Diff] Stat Lab 01/24/25 04:28 Completed CMP [Comprehensive Metabolic Panel] Stat Lab 01/24/25 04:28 Completed D-Dimer Stat Lab 01/24/25 04:28 Completed PT INR [Prothrombin Time INR] Stat Lab 01/24/25 04:28 Completed Medical Decision Narrative: In summary, this 64-year-old female with comorbidities described in the HPI which may not be at goal presents to the emergency department today with coughing up blood-streaked sputum. On initial evaluation patient is hemodynamically stable, afebrile, patient is moving good air throughout saturating well on room air, she does have faint end expiratory wheeze in the left lung consistent with her known diagnosis of asthma. Differential diagnosis includes but is not limited to bronchitis, pneumonia, I considered PE but have lower suspicion for this since patient is already on anticoagulation and has no chest pain or shortness of breath. Given her most recent history of viral syndrome and diagnosis of bronchitis from PCP, I believe this is the most likely explanation for her symptoms. Since she has had changes in her symptoms since seeing her PCP, will order fresh chest x-ray and serum labs including D-dimer. Patient is having persistent dry cough so she is receiving lidocaine neb for treatment. Because of her very mild end expiratory wheeze which is consistent with asthma, she also received DuoNeb. Labs personally reviewed demonstrate no leukocytosis or anemia, platelets normal, PT/INR normal, D-dimer normal at 0.46 reassuring against PE. No CTA PE indicated. CMP nonactionable. X-ray personally interpreted does not demonstrate lobar infiltrate, evidence of chronic disease stable from prior. No changes from yesterday. See radiology read for final interpretation. On reassessment patient is well-appearing, cough is controlled, she is resting comfortably and has good respiratory status. She is very reassured by the workup that has been performed. I believe she is appropriate for discharge at this time. She is already on azithromycin from her PCP so I encouraged her to finish this to avoid causing antibiotic resistance. No other changes in medications at this time. Patient was given instructions on symptomatic management, follow up instructions, and return precautions for the emergency department. Patient indicated understanding and was discharged in stable condition. Critical Care Critical Care Time Critical Care Time: No
[2025-01-24] MEDS: LIDOCAINE 2% 5ML PF VIAL 5 ML IH (04:31)
[2025-01-24 04:41] LABS: Chloride 105 mmol/L (98-107)
[2025-01-24 04:42] LABS: Albumin Level 4.7 g/dl (3.5-5.0); Potassium 3.7 mmoL/L (3.5-5.1); Sodium 138 mmol/L (136-145)
[2025-01-24] MEDS: IPRATROPIUM/ALBUTEROL 3 ML NEB IH (04:43)
[2025-01-24 04:44] LABS: Basophils % 0.1 % (0.1-2.0); Blood Urea Nitrogen 13 mg/dl (7-17); Creatinine Clearance Estimated 59 mL/min (50-200); Estimated Glomerular Filt Rate 84 ml/min (>60); GFR (African American) 102 ML/MIN (>60); Hematocrit 38.9 % (37.0-47.0); Hemoglobin 13.2 g/dL (12.2-16.2); Lymphocytes # 1.1 K/mm3 (0.7-4.5); Lymphocytes % 13.8 % (10-50); Mean Corpuscular HGB Conc 33.9 g/dL (31.8-35.4); Mean Corpuscular Hemoglobin 30.8 pg (27.0-31.2); Mean Corpuscular Volume 90.7 fl (81-99); Monocytes # 0.2 K/mm3 (0.1-1.0); Monocytes % 2.1 % (1.7-9.3); Neutrophils # 6.6 K/mm3 (1.8-7.8); Neutrophils % 82.7 % (37.0-80.0); Platelet Count 387 K/mm3 (142-424); Red Blood Count 4.29 M/mm3 (4.20-5.40); Red Cell Distribution Width 12.6 % (11.5-17.5)
[2025-01-24 04:45] LABS: Alanine Aminotransferase 29 U/L (12-78); Albumin/Globulin Ratio 1.5 (1.1-1.8); Alkaline Phosphatase 110 U/L (38-126); Anion Gap 11.7 mEq/L (5-15); Aspartate Amino Transferase 34 U/L (14-36); Bilirubin,Total 0.7 mg/dl (0.2-1.3); Calcium 9.7 mg/dl (8.4-10.2); Carbon Dioxide 25 mmol/L (22.0-30.0); Globulin 3.1 g/dL (1.3-3.2); Glucose 144 mg/dl (74-100); Total Protein,Serum 7.8 g/dl (6.3-8.2)
[2025-01-24 04:49] LABS: INR 0.91 (0.9-1.1); Prothrombin Time 10.3 seconds (10.1-12.5)
[2025-01-24 04:55] LABS: D-Dimer 0.46 ug/mL (0.0-0.5)
[2025-01-24 05:08] VITALS: BP 128/78; PULSE 86; RESP 20; TEMP 37; O2SAT 96
== END 2025-01-24 05:18 | disposition home or self-care (01) ==
PROVIDERS: Emergency Provider Emergency Medicine; PCP Pediatrics
DX: J40 Bronchitis, not specified as acute or chronic (principal); R04.2 Hemoptysis; D72.10 Eosinophilia, unspecified; I26.99 Other pulmonary embolism without acute cor pulmonale; Z79.01 Long term (current) use of anticoagulants; Z72.0 Tobacco use
CPT/HCPCS: 71046; 80053; 85025; 85378; 85610; 99283; J7620

== ENCOUNTER 2025-09-25 15:32 | Emergency (ER) | payer OTHER, SELFPAY ==
--- OUTSIDE RECORDS SUMMARY | 2025-09-25 15:44 | XMS_ITS | Encounter Summary ---
Author Organization [place] [address] Care Team Providers Care [employer] Scout Name Role Phone Eris Kenyon MD Primary Care Provider [phone] Reason for Referral * Mammography (Routine) - Pending Review Specialty Diagnoses / Procedures Referred By Christa t Referred To Contact Radiology Diagnoses Encounter for screening mammogram for breast cancer Procedures MM MAMMO DIGITAL NITZA SCREEN BILAT Eris Kenyon MD [address] [place] [address] Phone: tel: fax: Referral ID Status Reason Start Date Expiration Date V isits Requested Visits Authorized [id number] Pending Review 08/26/2025 08/26/2027 1 1 Encounter Details Date Type Department Care Team (Late st Contact Info) Description 08/26/2025 Orders Only [facility] [address] [email or web address] [address] Eris Kenyon MD [address] [place] [address] Encounter for screening mammogram for breast cancer (Primary Dx) Social History Tobacco Use Types Packs/Day Years Used Date Smoking Tobacco: Former Cigarettes 0.5 43.7 0 11/03/1979 - 07/04/2023 Passive Smoke Exposure: Past Smokeless Tobacco: Never Alcohol Use Standard Drinks/Week Comments No 0 (1 standard drink = 0.6 oz pur e alcohol) socially Overall Financial Resource Strain (CARDIA) Answe r Date Recorded How hard is it for you to pa y for the very basics like food, housing, medical care, and heating? Not hard at all 07/07/2023 PHQ-2 Answer Date Recorded PHQ-2 Total Score 0 07/15/2023 [facility] - Occupational Stress Questionnaire Answer Date Recorded Do you feel stress - tense, restless, nervous, or anxious, or unable to sleep at night because your mind is troubled all the time - these days? Rather much 07/15/2023 Exercise Vital Sign Answer Date Recorde d On average, how many days pe r week do you engage in moderate to strenuous exercise (like a brisk walk)? 0 days 07/07/2023 On average, how many minutes do you engage in exercise at this level? 0 min 07/07/2023 Hunger Vital Sign Answer Date Recorded Within the past 12 months, y ou worried that your food would run out before you got the money to buy more. Never true 07/07/20 23 Within the past 12 months, t he food you bought just didn't last and you didn't have money to get more. Never true 07/07/2023 PRAPARE - Transportation Answer Date Re corded In the past 12 months, has l ack of transportation kept you from medical appointments or from getting medications? No 02/2023 In the past 12 months, has l ack of transportation kept you from meetings, work, or from getting things needed for daily living? No 07/07/2023 Comments No Sex and Gender Information Value Date Recorded Sex Assigned at Not on file Legal Sex Female 12:38 AM EDT Gender Identity Not on file Sexual Orientation Not on file documented as of this encounter Functional Status * Is the person deaf or does he/she have serious difficulty hearing? Answer Date of Assessment Author No 07/15/2023 10:02 AM EDT Maria Del Rosario Garcia RMA * Is the person blind or does he/she have serious difficulty seeing even when wearing glasses? Answer Date of Assessment Author No 07/15/2023 10:02 AM Maria Del Rosario Rosales RMA * Does this person have serious difficulty walking or climbing stairs? Answer Date of Assessment Author No 07/15/2023 10:02 AM EDT Maria Del Rosario Garcia RMA * Does this person have difficulty dressing or bathing? Answer Date of Assessment Author No 07/15/2023 10:02 AM EDT Maria Del Rosario Garcia RMA * Because of a physical, mental or emotional condition, does this person have difficulty doing errands alone such as visiting a doctor's office or shopping? Answer Date of Assessment Author No 07/15/2023 10:02 AM EDT Maria Del Rosario Garcia RMA documented as of this encounter Mental Status * Because of a physical, mental or emotional condition, does this person have serious difficulty concentrating, remembering or making decisions? Answer Entry Date Author No 07/15/2023 10:02 AM EDT Maria Del Rosario Garcia RMA documented in this encounter Plan of Treatment Scheduled Orders Name Type Priority Associated Diagnoses Orde r Schedule MM MAMMO DIGITAL NITZA SCREEN BILAT Imaging Routine Encounter for screening mammogram for breast cancer 1 Occurrences starting 08/26/2025 until 08/26/2027 documented as of this encounter Goals Goal Patient Goal Type Associated Problems Recent Progress Patient-Stated? Author Blood Pressure < 140/90 Blood Pressure 120/80(2023 2:26 PM EDT) No Maria Del Rosario Garcia RMA Maintain a healthy diet, exercise regularly and maintain an ideal body weight General No Maria Del Rosario Garcia RMA Stay Tobacco Free Lifestyle No Maria Del Rosario Garcia RMA documented as of this encounter Visit Diagnoses Diagnosis Encounter for screening mammogram for breast cancer- Primary documented in this encounter Care Teams [employer] Scout Relationship Specialty Start Date End Date Eris Kenyon MD [address] [place] [place] [address] PCP - General Internal Medicine 04/07/17 documented as of this encounter
--- OUTSIDE RECORDS SUMMARY | 2025-09-25 15:44 | XMS_ITS | Encounter Summary ---
Author Organization [place] [address] Care Team Providers Care Stock Patch Sawyer Name Role Phone Eris Kenyon MD Primary Care Provider [phone] Reason for Visit * Reason Comments Medication Refill Encounter Details Date Type Department Care Team (Late st Contact Info) Description 08/10/[address] [address] Eris Kenyon MD [address] [place] [address] Medication Refill Social History Tobacco Use Types Packs/Day Years [...] Date Recorded PHQ-2 Total Score 0 07/15/2023 [facility]at [facility] - Occupational Stress Questionnaire Answer Date Recorded [...] AM Maria Del Rosario Rosales RMA * Is the person blind or does he/she have serious difficulty seeing even when wearing glasses? Answer Date of Assessment Author No 07/15/2023 10:02 AM Maria Del Rosario Rosales RMA * Does this person have serious difficulty walking or climbing stairs? Answer Date of Assessment Author No 07/15/2023 10:02 AM Maria Del Rosario Rosales RMA * Does this person have difficulty dressing or bathing? Answer Date of Assessment Author No 07/15/2023 10:02 AM Maria Del Rosario Rosales RMA * Because of a physical, mental or emotional condition, does this person have difficulty doing errands alone such as visiting a doctor's office or shopping? Answer Date of Assessment Author No 07/15/2023 10:02 AM Maria Del Rosario Rosales RMA documented as of this encounter Mental Status * Because of a physical, mental or emotional condition, does this person have serious difficulty concentrating, remembering or making decisions? Answer Entry Date Author No 07/15/2023 10:02 AM EDT Maria Del Rosario Garcia RMA documented in this encounter Ordered Prescriptions Prescription Sig Dispense Quantity Refills Last Filled Start Date End Date hydroCHLOROthiazid e (MICROZIDE) 12.5 mg Oral CapsuleIndications :Benign essential HTN,Dependent edema Take 1 capsule by mouth once daily 30 Capsule 08/11/2025 amLODIPine (NORVASC) 5 mg Oral TabletIndications: Benign essential HTN Take 1 tablet by mouth once daily 30 Tablet 08/11/2025 ELIQUIS 5 mg Oral TabletIndications: Aortic thrombus (HCC) Take 1 tablet by mouth twice daily 60 Tablet 08/11/2025 documented in this encounter Miscellaneous Notes * Telephone Encounter - Terrie Holguin CPhT - 08/11/2025 10:11 AM EDT ELIQUIS There is no CRS protocol for this medication. amLODIPine Future Visit: na Last Assessed Visit: na Follow-Up: jake Appointment protocol failed AND this patient requires the following labs/vitals. Routing to the office. Abnormal serum potassium OR potassium not on file within 6 months, Serum creatinine (6 months), andBlood pressure (12 months) hydroCHLOROthiazide Future Visit: na Last Assessed Visit: na Follow-Up: jake Appointment protocol failed AND this patient requires the following labs/vitals. Routing to the office. Serum sodium (6 months), Abnormal serum potassium OR potassium not on file within 6 months, Serum creatinine (6 months), and Blood pressure (12 months) documented in this encounter Plan of Treatment Not on file documented as of this encounter Goals Goal [...] as of this encounter Visit Diagnoses Diagnosis Aortic thrombus (HCC) Embolism and thrombosis of thoracic aorta Benign essential HTN Essential hypertension, benign Dependent edema Edema documented in this encounter Discontinued Medications Medication Sig Discontinue Reason Start Date End Da te hydroCHLOROthiazide (MICROZIDE) 12.5 mg Oral CapsuleIndications:Zia n essential HTN,Dependent edema Take 1 capsule by mouth once daily 07/13/2025 08/11/2025 ELIQUIS 5 mg Oral TabletIndications:Aortic thrombus (HCC) Take 1 tablet by mouth twice daily 07/13/2025 08/11/2025 amLODIPine (NORVASC) 5 mg Oral TabletIndications:Benign essential HTN Take 1 tablet by mouth once daily 07/13/2025 08/11/2025 documented as of this encounter Care Teams Stock Patch Sawyer Relationship Specialty Start Date End Date Eris Kenyon MD [facility] [place] [address] PCP - General Internal Medicine 04/07/17 documented as of this encounter
--- OUTSIDE RECORDS SUMMARY | 2025-09-25 15:44 | XMS_ITS | Encounter Summary ---
Author Organization [place] [address] Care Team Providers Care Health Plan Advisor Name Role Phone Eris Kenyon MD Primary Care Provider [phone] Reason for Visit * Reason Onset Date Comments Other 08/26/2025 mammogram Encounter Details Date Type Department Care Team ([facility] st Contact Info) Description 08/26/[address] [address] Kiesha Moffett RMA Other (mammogram) Social History Tobacco Use Types Packs/Day Years [...] Date Recorded PHQ-2 Total Score 0 07/15/2023 [place] [place] [facility] - Occupational Stress [...] Rosario Garcia RMA documented in this encounter Miscellaneous Notes * Telephone Encounter - Kiesha Moffett RMA - 08/26/2025 3:42 PM EDT Pt due for mammogram Order placed LMTCB documented in this encounter Plan of Treatment [...] documented as of this encounter Visit Diagnoses Not on filedocumented in this encounter Care Teams Health Plan Advisor Relationship Specialty Start Date End Date Eris Kenyon MD [address] [place] [address] PCP - General Internal Medicine 04/07/17 documented as of this encounter
--- OUTSIDE RECORDS SUMMARY | 2025-09-25 15:44 | XMS_ITS | Clinical Summary ---
Author Organization [facility] Address [address] [place] [address] Phone Care Team Providers Care Ropeman Name Role Phone Eris Kenyon MD Primary Care Provider [phone] Allergies Active Allergy Reactions Criticality Noted Date Comments Guaifenesin Palpitations,Other (See Comments) 07/05/2023 Pt states it makes her feel like her skin is crawling, that it gives her palpitations/makes her heart flutter Oxycodone-Acetaminophen Rash 10/09/2010 Medications Levalbuterol Tartrate (XOPENEX) 45 mcg/actuation Inhl HFA Aerosol InhalerIndicatio ns:Mild intermittent asthma without complication Inhale 2 Puffs into the lungs every 4 hours as needed. 15 g 5 3 Active EPINEPHrine (EPIPEN) 0.3 mg/0.3 mL Inj Auto-InjectorInd ications:Exacerb ation of asthma, unspecified asthma severity, unspecified whether persistent Inject 0.3 mg into the muscle as needed. 3 Active famotidine (PEPCID) 20 mg Oral TabletIndication s:Exacerbation of asthma, unspecified asthma severity, unspecified whether persistent Take 20 mg by mouth 2 times daily. 3 Active triamcinolone (KENALOG) 0.1 % Top OintmentIndicati ons:Exacerbation of asthma, unspecified asthma severity, unspecified whether persistent Apply topically. 3 Active aspirin 81 mg Oral Tablet, Chewable Take 1 Tablet by mouth daily. 30 Tablet 07/09/2023 12:05 PM EDT 3 Active hydrOXYzine (ATARAX) 25 mg Oral TabletIndication s:Itching Take 1 Tablet by mouth 3 times daily as needed for Itching. 90 Tablet 2 3 Active SYMBICORT 160-4.5 mcg/actuation Inhl HFA Aerosol Inhaler Inhale 2 Puffs into the lungs 2 times daily. 4 Active predniSONE (DELTASONE) 10 mg Oral Tablet Take by mouth daily. 4 Active montelukast (SINGULAIR) 10 mg Oral Tablet Take 10 mg by mouth every evening. 4 Active hydrOXYzine (ATARAX) 25 mg Oral TabletIndication s:Photosensitivi ty Take 1 tablet by mouth nightly 20 Tablet 2 4 Active cephALEXin (KEFLEX) 500 mg Oral Capsule Take 500 mg by mouth 2 times daily. 4 Active hydrOXYzine (VISTARIL) 50 mg Oral Capsule Take 50 mg by mouth 3 times daily as needed for Other (itching). 4 Active hydrOXYzine (ATARAX) 25 mg Oral TabletIndication s:Hives Take 1 Tablet by mouth 3 times daily as needed for Itching. 90 Tablet 2 4 Active methylPREDNISolo ne (MEDROL DOSPACK) 4 mg Oral Tablets, Dose PackIndications: Hives See package instructions 21 Tablet 4 Active ALLERGY RELIEF, CETIRIZINE, 10 mg Oral TabletIndication s:Seasonal allergies Take 1 tablet by mouth once daily 90 Tablet 5 Active ELIQUIS 5 mg Oral TabletIndication s:Aortic thrombus (HCC) Take 1 tablet by mouth twice daily 60 Tablet 5 Active amLODIPine (NORVASC) 5 mg Oral TabletIndication s:Benign essential HTN Take 1 tablet by mouth once daily 30 Tablet 5 Active hydroCHLOROthiaz abner (MICROZIDE) 12.5 mg Oral CapsuleIndicatio ns:Benign essential HTN,Dependent edema Take 1 capsule by mouth once daily 30 Capsule 5 Active Active Problems Patient Care Coordination No te Formatting of this note migh t be different from the original. 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 Pure hypercholesterolemia 10/10/2010 Asthma 10/10/2010 Headache 10/10/2010 Dermatophytosis of nail 10/10/2010 Encounters Date Type Department Care Team Description 09/25/2025 Refill [facility] [address] [place] [phone] Eris Kenyon MD Medication Refill 08/26/2025 Telephone [facility] [address] [place] [address] Kiesha Moffett RMA Other (mammogram) 08/26/2025 Orders Only [facility] [address] [place] [phone] Eris Kenyon MD Encounter for screening mammogram for breast cancer (Primary Dx) 08/10/2025 Refill [facility] [address] [place] [address] Eris Kenyon MD Medication Refill 07/13/2025 Refill [facility] [address] [place] [id number] Eris Kenyon MD Medication Refill 06/26/2025 Refill [facility] [address] [place] [address] Eris Kenyon MD Medication Refill from Last 3 Months Immunizations Immunization Administration Dates Next Due Influenza Patient Reported 09/03/2013 Influenza Seasonal Injectable PF 08/29/2018 Influenza Virus Vaccine Quadrivalant, Flublok Moderna SARS-CoV-2 Bivalent Booster Vaccine 12+ Years ([place]erda Border) 07/31/2022 Pneumococcal Polysaccharide 23 Valent 12/28/2013 Tdap 12/28/2013 Surgical History Surgery Date Site/Laterality Comments HYSTERECTOMY, TOTAL SECTION x 2 Medical History Medical History Date Comments Hypertension Asthma Degenerative arthritis of cervical spine Social History Tobacco Use Types Packs/Day Years Used Date Smoking Tobacco: Former Cigarettes 0.5 43.7 0 11/03/1979 - 07/04/2023 Passive Smoke Exposure: Past Smokeless Tobacco: Never Tobacco Cessation:Counseling Given: No Alcohol Use Standard Drinks/Week Comments No 0 (1 standard drink = 0.6 oz pur e alcohol) socially Overall Financial Resource Strain (CARDIA) Answe r Date Recorded How hard is it for you to pa y for the very basics like food, housing, medical care, and heating? Not hard at all 07/07/2023 PHQ-2 Answer Date Recorded PHQ-2 Total Score 0 07/15/2023 [facility] - Occupational Stress [...] on file Sexual Orientation Not on file Last Filed Vital Signs Vital Sign Reading Time Taken Comments Blood Pressure 120/80 07/26/2024 2:26 PM EDT Pulse 59 07/26/2024 2:26 PM EDT Temperature 36.4 C (97.6 F) 07/26/2024 2:26 PM EDT Respiratory Rate 20 07/26/2024 2:26 PM EDT Oxygen Saturation 98% 07/26/2024 2:26 PM EDT Inhaled Oxygen Concentration - - Weight 66.7 kg (147 lb) 07/26/2024 2:26 PM EDT Height 157.5 cm (5' 2 ) 07/26/2024 2:26 PM EDT Body Mass Index 26.89 07/26/2024 2:26 PM EDT Plan of Treatment Health Maintenance Due Date Last Done Comments Cologuard 2004 Colon Cancer Screening 2004 Colonoscopy 2004 FIT 2004 Sigmoidoscopy 2004 Virtual Colonography 2004 RSV or 60+ (1 - Risk 50-74 years 1-dose series) 2009 Zoster (1 of 2) 2009 Annual Wellness Exam 12/28/2014 12/28/2013 Pneumococcal Vaccine 50+ (2 of 2 - PCV) 12/28/2014 12/28/2013 Breast Cancer Screening 12/28/2015 12/28/2013 (Postp oned) DTaP/TDaP/Td (2 - Td or Tdap) 12/28/2023 12/28/2013 Bone Density Screening 2024 Low Dose Lung Cancer Screening 11/25/2024 11/25/2023, 07/04/2023, 03/07/2015 COVID-19 Vaccine ( season) 2025 07/31/2022, 11/03/2021, 05/02/2021, Additional history exists Influenza Vaccine (#1) 2025 , 08/29/2018, 09/03/2013 Hepatitis C Screening Completed 08/06/2024 Hepatitis B Vaccine Aged Out No longe r eligible based on patient's age to complete this topic Meningococcal B Vaccine Aged Out No l onger eligible based on patient's age to complete this topic Goals Goal Patient Goal Type Associated Problems Recent Progress Patient-Stated? Author Blood Pressure < 140/90 Blood Pressure 120/80(2023 2:26 PM EDT) No Mainous, Maria Del Rosario, RMA Maintain a healthy diet, exercise regularly and maintain an ideal body weight General No Mainous, Maria Del Rosario, RMA Stay Tobacco Free Lifestyle No Mainous, Maria Del Rosario, RMA Procedures Procedure Name Priority Date/Time Associated Diagnosis Comments HEPATITIS C ANTIBODY IGM + IGG Routine 08/06/2024 CT ANGIOGRAM AORTA CHEST W/CONTRAST Routine 11/25/2023 11:27 AM EST Aortic thrombus (HCC) from Last 3 Months or Most Recently Relevant to Health Maintenance Results * HEPATITIS C ANTIBODY IGM + IGG (08/06/2024) Hepatitis C RNA negative [facility] Blood VENOUS BLOOD / Unknown 08/06/2024 Historical Provider IMMUNOLOGY ORDERABLES Final Result SEP OFFICE * CT ANGIOGRAM AORTA CHEST W/CONTRAST (11/25/2023 11:27 AM EST) Anatomical Region Laterality Modality Chest Computed Tomogra phy 11/25/2023 11:2 7 AM EST Impressions 11/25/2023 11:46 AM EST 1. Near complete clearing of intramural thrombus of the aorta, with only a tiny residual intramural clot remaining. 2. No new abnormalities identified. - Note: Radiology results need to be interpreted within a comprehensive clinical context. If you have questions about the radiology report, please contact the office of the ordering clinician. Narrative 11/25/2023 11:[address] ANGIOGRAM CHEST WITH CONTRAST, 11/25/2023 11:27 AM CLINICAL HISTORY: I74.10-Embolism and thrombosis of unspecified parts of aorta (HCC)-ICD-10-CM. COMPARISON: CT angiogram of the chest pulmonary angiogram July 04, 2023. TECHNIQUE: CT angiogram of the chest with Isovue 370 IV contrast given as recorded in EPIC, with multiplanar reconstructions including 3-D MIP reconstructions. Dose 1 : CT DLP Total : 189.01 mGycm DLP Spiral Max : 172.95 mGycm Maximum CTDI Vol : 11.57 mGy FINDINGS: There is a tiny residual amount of thrombus at the junction of the ascending and transverse aorta but the amount of clot and endoluminal thrombus has diminished substantially. Largest residual clot is maximally 5 mm in size, previously measuring at least 24 mm. No penetrating ulcer identified associated with the residual clot. No other endoluminal thrombus of the aorta identified. Aortic tortuosity and atherosclerotic changes are again seen. The pulmonary arterial tree is unremarkable. Pulmonary fibrotic changes are again seen with no interval acute abnormality. Coronary artery calcification: Mild. Procedure Note Brayden Alvarado MD - 11/25/2023 CT ANGIOGRAM CHEST WITH CONTRAST, 11/25/2023 11:27 AM CLINICAL HISTORY: I74.10-Embolism and thrombosis of unspecified parts ofaorta (HCC)-ICD-10-CM. COMPARISON: CT angiogram of the chest pulmonary angiogram July. TECHNIQUE: CT angiogram of the chest with Isovue 370 IV contrast givenas recorded in EPIC, with multiplanar reconstructions including 3-D MIP reconstructions. Dose 1 : CT DLP Total : 189.01 mGycm DLP Spiral Max : 172.95 mGycm Maximum CTDI Vol : 11.57 mGy FINDINGS: There is a tiny residual amount of thrombus at the junction ofthe ascending and transverse aorta but the amount of clot and endoluminalthrombus has diminished substantially. Largest residual clot is maximally 5 mm insize, previously measuring at least 24 mm. No penetrating ulcer identifiedassociated with the residual clot. No other endoluminal thrombus of the aortaidentified. Aortic tortuosity and atherosclerotic changes are again seen. The pulmonary arterial tree is unremarkable. Pulmonary fibrotic changesare again seen with no interval acute abnormality. Coronary artery calcification: Mild. IMPRESSION: 1. Near complete clearing of intramural thrombus of the aorta, with only atiny residual intramural clot remaining. 2. No new abnormalities identified. - Note: Radiology results need to be interpreted within a comprehensiveclinical context. If you have questions about the radiology report, please contactthe office of the ordering clinician. us Dc Beasley MD IM CT ORDERABLES Final Result from Last 3 Months or Most Recently Relevant to Health Maintenance Insurance ANTHEM PPO ANTHEM PPO Advance Directives For more information, please contact: [phone] * Full Code (Latest Code Status on File) Date Activated Date Inactivated Comments 07/04/2023 11:10 PM 07/09/2023 6:21 PM Care Teams Ropeman Relationship Specialty Start Date End Date Eris Kenyon MD [address] [place] [address] [place] [address] PCP - General Internal Medicine 04/07/17
--- OUTSIDE RECORDS SUMMARY | 2025-09-25 15:44 | XMS_ITS | Encounter Summary ---
Author Organization [place] [address] Care Team Providers Care Gis Geographer Name Role Phone Eris Kenyon MD Primary Care Provider [phone] Reason for Visit * Reason Comments Medication Refill Encounter Details Date Type Department Care Team (Late st Contact Info) Description 09/25/[address] [address] Eris Kenyon MD [address] [place] [address] Medication Refill Social History Tobacco Use [...] Date Recorded PHQ-2 Total Score 0 07/15/2023 [facility] Occupat ional [facility] - Occupational Stress [...] as of this encounter Visit Diagnoses Diagnosis Seasonal allergies Allergic rhinitis, cause unspecified documented in this encounter Care Teams Gis Geographer Relationship Specialty Start Date End Date Eris Kenyon MD [address] [place] [phone] PCP - General Internal Medicine 04/07/17 documented as of this encounter
[2025-09-25 15:46] VITALS: BP 153/77; PULSE 94; RESP 16; TEMP 36.8; O2SAT 99; BMI 24.0
--- NOTE | 2025-09-25 15:52 | XR_ITS ---
PROCEDURE INFORMATION: Exam: XR Left Hip Exam date and time: 09/25/2025 3:50 PM Age: 64 years old Clinical indication: Hip pain; Left hip; Additional info: Lateral hip tenderness TECHNIQUE: Imaging protocol: Radiologic exam of the left hip. Views: 2 or 3 views hip with pelvis when performed. AP 1 view pelvis with 2 views hip COMPARISON: CR XR HIP LT 2-3V W/PELVIS 09/25/2025 3:50 PM FINDINGS: Bones/joints: Mild generalized bony degenerative changes. Bony structures appear otherwise unremarkable. No visualized evidence for acute bony fracture or dislocation. Soft tissues: Unremarkable. Notes: If there is further concern, recommend follow-up radiographs or bone scan for complete assessment. IMPRESSION: No acute bony findings.
--- NOTE | 2025-09-25 15:52 | XR_ITS ---
PROCEDURE INFORMATION: Exam: XR Lumbosacral Spine Exam date and time: 09/25/2025 3:54 PM Age: 64 years old Clinical indication: Low back pain TECHNIQUE: Imaging protocol: Radiologic exam of the lumbosacral spine. Views: 2 or 3 views. AP Lateral and Coned down lateral COMPARISON: CR XR LUMBAR SPINE 2-3V 09/25/2025 3:54 PM FINDINGS: Tubes, catheters and devices: None. Bones/joints: Diffusely severely decreased bone density. Limited sensitivity to detect acute bony abnormalities. 4 [id number] lumbar-type vertebra are demonstrated. This is congenital normal variant anatomy. Bilateral lumbar sacral transitional vertebra is demonstrated. The visualized sacral arches appear intact. Bilateral L5 spondylolysis is demonstrated. Severe bony degenerative changes involving the lumbar sacral junction. Moderate to severe bony degenerative changes involving the posterior facet articulations of the lower lumbar spine and lumbar sacral junction. Grade 2 anterior spondylolisthesis is demonstrated within the lumbar sacral junction. The spondylolisthesis measures 12 mm. No visualized evidence for acute bony fracture or dislocation. Soft tissues: Unremarkable. Lungs: Visualized aspects of the chest appear grossly unremarkable. Vasculature: Moderate to severe atherosclerotic calcification demonstrated within the aorta. Notes: If there is further concern or neurological abnormalities on clinical exam, MRI or CT of the cervical spine may be performed for complete assessment. IMPRESSION: 1. L5 spondylolysis with lumbosacral spondylolisthesis and advanced chronic bony degenerative changes within lower lumbar spine, lumbosacral junction, as described above. Consider MRI imaging. 2. Decreased bone density. 3. Chronic degenerative changes. 4. Aortic calcifications.
--- NOTE | 2025-09-25 15:52 | XR_ITS ---
PROCEDURE INFORMATION: Exam: XR Left Knee Exam date and time: 09/25/2025 3:49 PM Age: 64 years old Clinical indication: Pain; Weakness; Hip and knee; Left; Additional info: Left knee, hip and low back pain TECHNIQUE: Imaging protocol: Radiologic exam of the left knee. Views: 3 views. COMPARISON: CR Knee L 09/25/2025 3:49 PM FINDINGS: Bones/joints: No fracture evident No other significant bone or joint abnormality. Soft tissues: Normal. IMPRESSION: No acute findings.
[2025-09-25] MEDS: LIDOCAINE 5% TRANSDERMAL PATCH 1 EACH TD (16:34)
[2025-09-25] MEDS: METHOCARBAMOL 500MG TABLET 500 MG PO (16:35)
--- NOTE | 2025-09-25 17:30 | PC.NURSE ---
I talked to Beena in radiology about the pts unresulted knee XR. She states the radiologist is reading it at this time.
--- NOTE | 2025-09-25 17:31 | ED_ITS ---
<Statement entered by Nolan Pierre DO - 09/25/25 23:31> I was consulted by the BRIJESH, and we discussed the complexity of problems being addressed. I approved the treatment and management plan for this patient's care in the emergency department, thus performing a substantive portion of the medical decision making. Nolan Pierre DO This is Dr. Pierre. I independently evaluated this patient as well. She tells me that she has history of degenerative joint disease in her back. 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 She states that she has been lifting lots of heavy items and she has exacerbated her chronic back pain. She states that this is similar to prior exacerbations she has had in the past. She does note that she has had some pain that is radiated down to her leg consistent with sciatica. She specifically denies saddle anesthesia, weakness in the lower extremity, urinary retention, and urinary incontinence. We did perform a postvoid residual that showed 0 mL of postvoid urine in the bladder. She has no midline lumbar spine tenderness. therefore in the absence of red flag symptoms and a normal postvoid residual I do not feel that she is high risk for spinal cord compression syndromes. X-rays were obtained and were personally turbid by me and showed no acute fractures. We treated the patient with a Lidoderm patch as well as Robaxin and she was ultimately would be discharged home Discharge Plan Disposition Patient Disposition: Home Health Service Condition: Good Prescriptions Prescriptions: New methocarbamol 500 mg tablet 500 mg PO Q8H Qty: 15 0RF methylprednisolone [Medrol (Leo)] 4 mg tablets,dose pack See Rx Instructions .ROUTE .COMPLEX Qty: 21 0RF Rx Instructions: for 6 days famotidine [Pepcid] 20 mg tablet 20 mg PO BID 10 Days Qty: 20 0RF Discontinued methylprednisolone 4 mg tablets,dose pack See Rx Instructions PO PER PKG DIR Qty: 21 0RF Rx Instructions: PO PER PKG DIR No Action hydrochlorothiazide 12.5 mg capsule 12.5 mg PO DAILY Patient Comments: TAKE 1 CAPSULE BY MOUTH ONCE DAILY famotidine 20 mg tablet 20 mg PO BID Patient Comments: TAKE 1 TABLET BY MOUTH TWICE DAILY amlodipine 5 mg tablet 5 mg PO DAILY Patient Comments: TAKE 1 TABLET BY MOUTH ONCE DAILY cetirizine 10 mg tablet PO Patient Comments: TAKE 1 TABLET BY MOUTH ONCE DAILY azithromycin [Zithromax Z-Leo] 250 mg tablet See Rx Instructions PO .COMPLEX Qty: 6 0RF Rx Instructions: For 250 mg dose pack: take 500 mg today (day 1), then 250 mg for 4 days (days 2-5) PO benzonatate 100 mg capsule 100 mg PO BID PRN (Reason: cough) Qty: 20 0RF hydroxyzine HCl 25 mg tablet 25 mg PO HS Patient Comments: TAKE 1 TABLET BY MOUTH NIGHTLY budesonide-formoterol [Breyna] 160-4.5 mcg/actuation HFA aerosol inhaler 2 puff INHALATION BID Patient Comments: INHALE 2 PUFFS BY MOUTH TWICE DAILY Eliquis 5 mg Tablet See Rx Instructions .ROUTE .COMPLEX 30 Days Qty: 72 0RF Rx Instructions: 2 tabs (10mg) BID for 6 days followed by 1 tab (5mg) BID thereafter Referrals Follow up/Referrals: Bryce Benavides DO [Staff Physician, Orthopedics] - See instructions Eris Kenyon [Primary Care Provider, Medical] - See instructions Activity Restrictions/Add. Instructions Additional Instructions/Restrictions: You were seen for back pain radiating into the knee. Your x-rays did show some arthritis and disc disease. Please follow-up with the orthopedist. Return here if you have severe pain or difficulty using the bathroom, incontinence or numbness in your groin. Clinical Impressions Clinical Impression: Back pain Instructions Patient Instructions: DI for Low Back Pain Print Language Print Language: Divehi Discharge ED Provider: Nolan Pierre Adult [facility] General Chief complaint: Back Pain/Injury Stated complaint: back pain Time Seen by Provider: 09/25/25 15:37 Mode of Arrival: Ambulatory Source of Information: Patient Description of Symptoms (Recalled from ER Triage Doc. by RN): pt c/o middle lower back pain that radiates down her LLE (worse in the knee.) pt states this has been ongoing since 08/29. At that time pt began packing and doing a lot of heavy lifting. pt states she has been lifting heavy objects continuously since making the pain worse and worse. pts pain is 12/10 and constant. History of Present Illness HPI narrative: Patient presents complaining of left low back pain radiating into the hip and left knee. She reports the pain is worse with walking. She reports that she does have full range of motion. Denies any bowel or bladder incontinence or saddle anesthesias. Patient reports that the pain started August 29 when she s tarted helping her place of employment pack boxes and move. She reports that she has been doing frequent heavy lifting and bending. Denies any direct trauma or fall. MD complaint: back pain Onset (ago): week(s) Location: back and left Radiation: other (knee) Severity: moderate Consistency: constant Relieving factors: rest Exacerbating factors: movement Associated symptoms: negative weakness Related Data Home Medications ?Medication ?Instructions ?Recorded ?Confirmed amlodipine 5 mg tablet 5 mg PO DAILY 09/16/2301/23 famotidine 20 mg tablet 20 mg PO BID 09/16/23 hydrochlorothiazide 12.5 mg capsule 12.5 mg PO DAILY 1 11/16/22 01/23/25 budesonide-formoterol HFA 160 2 puff inhalation BID 01/23/25 mcg-4.5 mcg/actuation aerosol inhaler (Breyna) hydroxyzine HCl 25 mg tablet 25 mg PO HS 05/26/2401/02 cetirizine 10 mg tablet mg PO 01/23/25 01/23/25 Previous Rx's ?Medication ?Instructions ?Recorded apixaban 5 mg tablet (Eliquis) See Rx Instructions .Ro lumbee 05/26/24 .COMPLEX 30 days #72 tabs azithromycin 250 mg tablet See Rx Instructions PO .COM PLEX #6 01/23/25 (Zithromax Z-Leo) tabs benzonatate 100 mg capsule 100 mg PO BID PRN cough #20 caps 01/23/25 famotidine 20 mg tablet (Pepcid) 20 mg PO BID 10 days #20 tabs 09/25/25 methocarbamol 500 mg tablet 500 mg PO Q8H #15 tabs methylprednisolone 4 mg tablets in See Rx Instructions PO .COMPLEX 09/25/25 a dose pack (Medrol (Leo)) #21 tabs Allergies Allergy/AdvReac Type Severity Reaction Status Date / Time oxycodone (From Percocet) Allergy Severe Rash Verified 09/25/25 15:51 COVID VACCINE Allergy Rash Uncoded 01/23/25 13:37 PFSH [facility] Disclaimer: The information contained in this section may have been updated after the patient was seen, as this information can be updated by other users. Medical History History of blood clots Dermatitis Asthma Surgical History H/O: hysterectomy Family History Other Asthma Eczema Hyperlipidemia Hypertension Social History Smoking Status: Current every day smoker alcohol intake: never current occupational status: unemployed Travel in the last 8 weeks?: None Have you lived/traveled outside [place] in past 30 days?: No Contact w/someone who lives/traveled outside [place] past 30 days?: No Exposure to someone with infectious disease in past 14 days?: No Do you have a fever (greater than 100.4 F or 38 C)?: No Have you tested positive for COVID-19?: No Exposed to someone with COVID-19 in past 14 days?: No Do you have a sore throat?: No Do you have a cough?: No Do you have any weakness?: No Do you have any diarrhea?: No Are you experiencing any unusual bleeding?: No Do you have any muscle aches/pain?: No Do you have any abdominal pain?: No Are you experiencing loss of taste or smell?: No Other Medical History Have you received the Flu Vaccine for this season: No Have you received the Pneumonia Vaccine: No ROS Obtained: Yes Systems reviewed as appropriate & no additional complaints except as documented Physical Exam General General appearance: alert and in no apparent distress Head Head exam: atraumatic and normocephalic Eye Eye exam: Present normal appearance and EOMI Chest Chest inspection: Present symmetric chest wall rise Respiratory Respiratory exam: Present normal lung sounds bilaterally; Absent wheezes or stridor Cardiovascular Cardiovascular exam: Present regular rate and normal rhythm; Absent systolic murmur Extremities Exam Extremities exam: Present full ROM Back Exam Back exam: Present other (generalized lumbar spine TTP, FROM, left lateral hip TTP, generalized left knee tenderness. FROM/ N/V intact. Joints stable. ) Neurological Exam Neurological exam: Present alert and oriented X3 Psychiatric Psychiatric exam: Present normal affect and normal mood Skin Skin exam: Present warm, dry and intact Medical Decision Making Medical Records Screening: Per USPSTF and CDC recommendations, given the prevalence of disease in our region, it is our hospital?s policy to screen for HIV and viral Hepatitis for all patients aged 18 and over and those with ongoing risk factors. Prabhakar Inquiry Pt receiving controlled substance: No Vital Signs: 09/25/25 15:46 09/25/25 17:49 Temperature 98.2 F 98.0 F Temperature Source Oral Oral Pulse Rate 88 Pulse Rate [Left] 94 H Respiratory Rate 16 18 Blood Pressure 148/78 H Blood Pressure [Right Arm] 153/77 H Blood Pressure Mean [Right Arm] 102 Blood Pressure Source Automatic Cuff Blood Pressure Source [Right Arm] Automatic Cuff Blood Pressure Position Sitting Blood Pressure Position [Right Arm] Sitting 02 Sat by Pulse Oximetry 99 Oxygen Delivery Method Room Air Room Air Orders (Tests/Meds): ED MEDICATIONS Generic Name Dose Route Start Last Admin Trade Name Freq PRN Reason Stop Dose Admin Lidocaine 1 each 09/25/25 16:30 09/25/25 16:34 Lidocaine 5% Transdermal Patch TD 10/25/25 16:29 1 each Q24H MAXWELL Administration Discontinued Medications Generic Name Dose Route Start Last Admin Trade Name Freq PRN Reason Stop Dose Admin Methocarbamol 500 mg 09/25/25 16:31 09/25/25 16:35 Methocarbamol 500mg Tablet PO 09/25/25 16:32 500 mg ONCE STA Administration ORDERS Category Date Time Status Hip XR left minimum 2 views [XR hip LT 2-3V w/pelvis] Exams 09/25/25 15:52 Completed Stat Knee XR left 3 views [XR knee LT 3V] Stat Exams 09/25/25 15:52 Completed Lumbar spine XR 2-3 views [XR lumbar spine 2-3V] Stat Exams 09/25/25 15:52 Completed Medical Decision Narrative: In summary patient is a 64-year-old female who presents the emergency department for evaluation of back pain radiating to the left knee. Patient is hemodynamically stable upon arrival, afebrile. Generalized tenderness to the lumbar, left hip and knee. Differential diagnosis includes lumbar strain, arthritis, fracture. Initial workup will be conducted with x-ray of the lumbar spine, left hip and left knee. Initial inventions include methocarbamol and lidocaine patch. Initial workup reviewed by me reveals some degenerative disc disease, spondylolisthesis, spondylolysis. Upon repeat evaluation patient is resting comfortable. Given this patient started on Medrol Dosepak, Robaxin and given follow-up with orthopedics. Post void residual on bladder scan 0 mL. Critical Care Critical Care Time Critical Care Time: No
[2025-09-25 17:49] VITALS: BP 148/78; PULSE 88; RESP 18; TEMP 36.7; O2SAT 98
== END 2025-09-25 17:51 | disposition home health service (06) ==
PROVIDERS: Emergency Provider Student in an Organized Health Care Education/Training Program; PCP Pediatrics
DX: M54.50 Low back pain, unspecified (principal); M25.552 Pain in left hip; M25.562 Pain in left knee; X50.0XXA Overexertion from strenuous movement or load, initial encounter; X50.3XXA Overexertion from repetitive movements, initial encounter
CPT/HCPCS: 51798; 72100; 73502; 73562; 99284